=== PATIENT | male | born 1975 | race Caucasian/White ===

== ENCOUNTER → 2020-04-21 13:02 | Outpatient (BNVA) | payer MEDICARE, MEDICAID, SELFPAY | PROVIDERS: PCP Nurse Practitioner Family; Referring Provider Nurse Practitioner Family; Visit Provider Nurse Practitioner Gerontology | DX: E11.65 Type 2 diabetes mellitus with hyperglycemia (principal); I10 Essential (primary) hypertension; E78.5 Hyperlipidemia, unspecified; E55.9 Vitamin D deficiency, unspecified | CPT/HCPCS: 82947; 99212 ==

== ENCOUNTER 2020-05-14 09:04 | Outpatient (REF) | payer MEDICARE, MEDICAID, SELFPAY ==
--- NOTE | 2020-05-14 09:07 | EMG_ITS ---
HISTORY OF PRESENT ILLNESS: This is a 44-year-old man with history of diabetes for 11 years, poorly controlled, currently on Trulicity, who comes in with 1-year history of intermittent burning in both feet from the shins down, increase in the last 6 months, but not persistent. PHYSICAL EXAMINATION: On examination, he is alert and oriented with normal intellectual functions. Cranial nerves II through XII are normal. Muscle tone and strength normal in all 4 extremities. Deep tendon reflexes are absent in the lower extremities. IMPRESSION: Diabetic peripheral neuropathy. Nerve conduction EMG study: Demyelinating greater than axonal neuropathy in the lower extremities consistent with mild diabetic peripheral neuropathy. EMG of the right L4-S1 innervated muscles consistent with mild chronic distal neuropathic changes. MD BEVERLY Walker/ELENA / [id number]
== END 2020-05-14 09:05 | disposition home or self-care (01) ==
LOC: HO.NEURO 09:04
PROVIDERS: PCP Nurse Practitioner Family; Visit Provider Nurse Practitioner Family
DX: R20.0 Anesthesia of skin (principal)
CPT/HCPCS: 95860; 95886; 95913

== ENCOUNTER → 2020-07-08 09:23 | Outpatient (BNVA) | payer MEDICARE, MEDICAID, SELFPAY | PROVIDERS: Visit Provider Urology | DX: E11.69 Type 2 diabetes mellitus with other specified complication (principal); N52.1 Erectile dysfunction due to diseases classified elsewhere | CPT/HCPCS: Q3014 ==

== ENCOUNTER → 2020-07-22 09:37 | Outpatient (BNVA) | payer MEDICARE, MEDICAID, SELFPAY | PROVIDERS: PCP Nurse Practitioner Family; Visit Provider Nurse Practitioner Gerontology | DX: Z76.89 Persons encountering health services in other specified circumstances (principal) | CPT/HCPCS: Q3014 ==

== ENCOUNTER 2020-11-24 11:05 | Outpatient (REF) | payer MEDICARE, MEDICAID, SELFPAY ==
[2020-11-24 13:37] LABS: MANUAL DIFF FLAG NO
[2020-11-24 13:44] LABS: Basophils Percent Auto 0.3 % (0-2); Eosinophils Absolute Auto 0.2 X10*3/uL (0.0-0.4); Eosinophils Percent Auto 1.5 % (0-4); Hematocrit 47.4 % (42-52); Hemoglobin 15.6 g/dl (14.0-18.0); Imm Gran Abs Auto 0.06 X10*3/uL (0.00-0.03); Imm Gran Pct Auto 0.5 % (0.0-0.4); Lymphocytes Absolute Auto 2.1 X10*3/uL (1.2-4.9); Lymphocytes Percent Auto 17.7 % (20-40); Mean Corpuscular HGB Conc 32.9 g/dl (31.0-36.0); Mean Corpuscular Hemoglobin 30.5 pg (27.0-33.0); Mean Corpuscular Volume 92.8 fL (80-98); Mean Platelet Volume 10.5 fL (9.4-12.4); Monocytes Absolute Auto 1.1 X10*3/uL (0.1-1.2); Neutrophils Absolute Auto 8.3 X10*3/uL (2.0-8.3); Platelet Count 269 X10*3/uL (160-400); Red Blood Count 5.11 X10*6/uL (4.60-5.80); White Blood Count 11.7 X10*3/uL (4.8-10.8)
[2020-11-24 13:50] LABS: Estimated Average Glucose 163 mg/dL; Hemoglobin A1c % 7.3 %
[2020-11-24 14:13] LABS: Alanine Aminotransferase 22 U/L (0-40); Albumin Level 4.4 g/dL (3.5-5.0); Alkaline Phosphatase 99 U/L (39-117); Anion Gap 12 (12-20); Aspartate Amino Transferase 19 U/L (5-37); Bilirubin Total 0.5 mg/dL (0.0-1.0); Blood Urea Nitrogen 13 mg/dL (9-16); Calcium 9.8 mg/dL (8.4-10.2); Carbon Dioxide 29 mmol/L (22-29); Chloride 101 mmol/L (96-108); Estimated Glomerular Filt Rate > 60; Glucose Random 152 mg/dL (60-115); Lipase 35 U/L (8-78); Sodium 138 mmol/L (135-145); Total Protein 7.3 g/dL (6.5-8.0)
[2020-11-24 14:17] LABS: Thyroid Stimulating Hormone 2.44 uIU/mL (0.32-4.0)
== END 2020-11-24 11:06 | disposition home or self-care (01) ==
LOC: HO.LAB 11:05
PROVIDERS: PCP Nurse Practitioner Family; Referring Provider Nurse Practitioner Family; Visit Provider Physician Assistant
DX: R10.11 Right upper quadrant pain (principal); R11.2 Nausea with vomiting, unspecified; G89.29 Other chronic pain; K59.09 Other constipation; E11.65 Type 2 diabetes mellitus with hyperglycemia; R74.01 Elevation of levels of liver transaminase levels
CPT/HCPCS: 36415; 80053; 83036; 83690; 84443; 85025; 99212

== ENCOUNTER 2020-12-01 12:08 | Day surgery (SDC) | payer MEDICARE, MEDICAID, SELFPAY ==
[2020-12-01 12:02] VITALS: BMI 26.4
[2020-12-01 12:18] VITALS: BP 124/83; PULSE 80; RESP 16; TEMP 36.9; O2SAT 96
[2020-12-01 12:20] LABS: Glucose, Whole Blood 143 mg/dL (60-115)
--- NOTE | 2020-12-01 12:25 | P.CONAN_ITS ---
[facility] Active Problems Active Problems: All Active Problems (Updated 11/24/20 @ 15:34 by Re alcantar PA-C) Nausea and vomiting (Acute) Chronic right upper quadrant pain (Acute) Erectile dysfunction associated with type 2 diabetes mellitus (Acute) Numbness in both legs (Acute) Nausea and vomiting (Acute) Type 2 diabetes mellitus with hyperglycemia (Acute) Essential hypertension (Acute) Hyperlipidemia LDL goal <100 (Acute) Vitamin D deficiency (Acute) Past Medical History Medical History Chronic right upper quadrant pain Essential hypertension Hyperlipidemia LDL goal <100 Nausea and vomiting Type 2 diabetes mellitus with hyperglycemia Vitamin D deficiency Family History Family History Father Lung cancer Diabetes CVD (cardiovascular disease) Mother Diabetes Hypertension Surgical History Surgical History History of surgical removal of ganglion cyst Hx of cholecystectomy Hx of spinal fusion Social History Social History Household Members: Spouse Alcohol intake: never Patient Tobacco Use Status: Former Tobacco user Second Hand Smoke Exposure: No Use of substances other than those prescribed or required for medical reasons: Yes Are you DNR?: No Advance Directives: No Advance Directives Information Provided: Yes Advance Directives on File: No Current occupational status: unemployed Meds Allergies Allergy/AdvReac Type Severity Reaction Status Date / Time amoxicillin Allergy Unknown vomitting Verified 11/24/20 11:27 Cortisone Allergy Unknown swelling Uncoded 11/24/20 11[facility] Medications Medication Instructions Recorded Confirmed Last Taken Type ezetimibe 10 mg tablet 10 mg PO DAILY 04/21/20 07/22/20 Unknown History pantoprazole 40 mg tablet,delayed 40 mg PO DAILY 07/22/20 07/22/20 Unknown History release Exam Exam Date and Time: December 01, 2020 1225 Height,Weight and Vital Signs: Height 6 ft Weight 88.621 kg Last Vital Signs Temp 98.4 F 12/01/20 12:18 Pulse 80 12/01/20 12:18 Resp 16 12/01/20 12:18 BP 124/83 12/01/20 12:18 Pulse Ox 96 12/01/20 12:18 Pertinent Lab Results Pertinent Lab Results: Laboratory Tests 12/01/20 12:15 POC Glucose 143 H Airway Mallampati Class: II TM Dist: >3cm Neck ROM: Full
--- NOTE | 2020-12-01 12:38 | MHC.SHP ---
Pre-Procedural Eval Section B Chief Complaint: n/v Relevant Family History (Specify if Yes): No Relevant Social History: None Present Medications: see Short Stay Collaborative assessment Medical History: Significant History (Chronic right upper quadrant pain Essential hypertension Hyperlipidemia LDL goal <100 Nausea and vomiting Type 2 diabetes mellitus with hyperglycemia Vitamin D deficiency) History of Previous Operations: Relevant previous surgery/procedure and date(s) (cholecystectomy, spinal surgery) Allergies: Allergies Allergy/AdvReac Type Severity Reaction Status Date / Time amoxicillin Allergy Unknown vomitting Verified 11/24/20 11:27 Cortisone Allergy Unknown swelling Uncoded 11/24/20 11:27 of the inyection site Review of Systems Sugical H&P ROS: Negative: Constitution, Cardiovascular, Respiratory, Neurological, Psychiatric, Hem-Onc, Allergic/Immunologic, Gastrointestinal, Genitourinary, Musculoskeletal, Integumentary, Endocrine and Eyes/Ears/Nose/Throat Exam Surgical H&P Exam: Normal: HEENT, Normal: Heart, Normal: Lungs, Normal: Extremities, Normal: Abdomen, Normal: Skin and Normal: Neurological Plan Diagnosis/Plan: Unchanged I have reviewed the history and physical and performed a pertinent physical examination on my patient. No changes have occurred unless specified.
--- NOTE | 2020-12-01 12:52 | PM.OP ---
Brief Operative Note Date of Service: 12/01/20 Pre-op diagnosis: nausea, pain Post-op diagnosis: same Procedure: see op note Surgeon: Starr Nuñez MD Anesthesia: MAC Was an Environmental Auditor used for this Procedure?: No Estimated blood loss (mL): 0 Condition: stable Disposition: PACU
--- NOTE | 2020-12-01 12:52 | W.PM.OPN ---
Operative Note Operative Note Date of Service: 12/01/20 Narrative: Procedure Description: EGD FLEXIBLE TRANSORAL UPPER GASTROINTESTINAL ENDOSCOPY UPPER ENDOSCOPY Consent: Indications for the procedure and potential complications of bleeding, perforation, reaction to medications and missed diagnosis were discussed with the patient and informed consent was obtained. Instrument: Olympus GIF H 190 J mid size upper endoscope Monitoring: Vital signs and clinical assessment, continuous EKG monitoring, Pulse oximetry, Carbon Dioxide monitoring and blood pressure monitoring were done throughout the procedure. Procedure: The patient was placed in the left lateral decubitis position and pre-procedure medications were administered and a bite block was placed. The endoscope was inserted into the mouth and advanced under direct vision to the third part of duodenum. A careful inspection was made as the upper endoscope was withdrawn including a retroflexed examination of the proximal stomach; Findings and interventions are described below. Findings: Larynx:normal Esophagus: GE junction at 42 cm, diaphragm hiatus at 42 cm, no varices or esophagitis. Stomach: Retained food in upper stomach. Patchy gastric erythema. Biopsies were obtained. Grade 2 flap valve on retroflexed examination of the cardia. Fundus obscured by retained food. Duodenum: Normal bulb and descending duodenum, bx taken Intervention: Biopsies as noted above Impression/Findings: possible gastroparesis maybe from DM or medication related gastritis PLAN: small volume low fat, low fiber meals await GES as ordered by Saad Calvillo and GENEVIEVE ZUÑIGA cont with PPI
[2020-12-01 13:03] VITALS: BP 120/76; PULSE 80; RESP 16; TEMP 36.1; O2SAT 98
[2020-12-01 13:18] VITALS: BP 120/84; PULSE 77; RESP 18; TEMP 36.4; O2SAT 98
== END 2020-12-01 13:35 | disposition home or self-care (01) ==
PROVIDERS: PCP Nurse Practitioner Family; Visit Provider Internal Medicine Gastroenterology
PROC: 0DJ08ZZ Inspection of Upper Intestinal Tract, Via Natural or Artificial Opening Endoscopic (ICD-10-PCS; CPT 43235; principal; 2020-12-01 12:50)
DX: R11.2 Nausea with vomiting, unspecified (principal); K29.70 Gastritis, unspecified, without bleeding; I10 Essential (primary) hypertension; E11.9 Type 2 diabetes mellitus without complications
CPT/HCPCS: 43239; 82947; 88305; 88341; 88342

== ENCOUNTER → 2020-12-08 12:33 | Outpatient (BNVA) | payer MEDICARE, MEDICAID, SELFPAY | PROVIDERS: PCP Nurse Practitioner Family; Visit Provider Nurse Practitioner Gerontology | DX: Z13.89 Encounter for screening for other disorder (principal) | CPT/HCPCS: 99212 ==

== ENCOUNTER 2020-12-25 07:50 | Outpatient (REF) | payer MEDICARE, MEDICAID, SELFPAY ==
--- NOTE | ~2020-12-25 | US_ITS ---
EXAMINATION: US ABDOMEN COMPLETE CLINICAL INFORMATION: Right upper quadrant pain. COMPARISON: Abdominal CT of March 24, 2018 TECHNIQUE: Real-time imaging of the abdominal viscera. FINDINGS: PANCREAS: Unremarkable. No abnormal mass or peripancreatic inflammatory change. ABDOMINAL AORTA: The proximal, mid, and distal segments are normal in caliber. There is some calcified plaque present without significant stenosis appreciated. INFERIOR VENA CAVA: Visualized portions are normal. LIVER: The liver is normal in size. The liver contour is normal. There is mildly increased echogenicity compared to renal parenchyma. This is consistent with fatty infiltration. No focal hepatic lesion. There is no intrahepatic biliary duct dilatation seen. GALLBLADDER: status post cholecystectomy. COMMON BILE DUCT: Normal in caliber measuring 0.3 cm in diameter. RIGHT KIDNEY: Normal. No hydronephrosis. No renal calculi or focal parenchymal lesions. The kidney measures 11.8 cm in maximum dimension. LEFT KIDNEY: Normal. No hydronephrosis. No renal calculi or focal parenchymal lesions. The kidney measures 10.5 cm in maximum dimension. SPLEEN: Mild splenomegaly present. The spleen measures 13.2 cm in maximum dimension. FREE FLUID: None. US/US abdomen complete IMPRESSION: Findings consistent with fatty infiltration of the liver. Prominence of the spleen measuring 13.2 cm in vertical span. Status post cholecystectomy.
== END 2020-12-25 07:51 | disposition home or self-care (01) ==
LOC: HO.US 07:50
PROVIDERS: Visit Provider Physician Assistant
DX: R10.11 Right upper quadrant pain (principal); G89.29 Other chronic pain
CPT/HCPCS: 76700

== ENCOUNTER → 2020-12-31 08:11 | Outpatient (REF) | payer MEDICARE, MEDICAID, SELFPAY ==
--- NOTE | ~2020-12-31 | NM_ITS ---
EXAMINATION: MT RADIONUCLIDE SOLID FOOD GASTRIC EMPTYING 4-HOUR STUDY CLINICAL INFORMATION: Diabetes mellitus with hyperglycemia. Nausea and vomiting. COMPARISON: None TECHNIQUE: A standard meal consisting of 4 oz of Egg Beaters brand tagged with 1.0 microcuries Tc-99m Sulfur Colloid, 8 oz water and half slice of toast with jelly was administered orally to the patient. Images were obtained using a dual head gamma camera in the anterior and posterior projections over of the stomach immediately post ingestion and at hourly intervals up to 4 hours post ingestion. The anterior and posterior counts at each time interval were averaged using the geometric mean and expressed as percentage of the immediate post ingestion counts. FINDINGS: There is good visualization of activity in the stomach immediately post ingestion. As the study progresses, there is good clearance of activity from the stomach and visualization of progressively increasing small bowel activity. By the end of the study, there is almost no retention noted in the stomach. Retention in the stomach at each time interval was: 1 hour 25% (normal 37%-90%) 2 hours 20% (normal 30%-60%) 3 hours 1% 4 hours 0% (normal 0%-10%) MT/MT gastric emptying study IMPRESSION: Normal 4-hour solid food gastric emptying study.
== END ==
LOC: HO.NUCMED 08:11
PROVIDERS: Visit Provider Physician Assistant
DX: R11.2 Nausea with vomiting, unspecified (principal); E11.65 Type 2 diabetes mellitus with hyperglycemia
CPT/HCPCS: 78264; A9541

== ENCOUNTER 2021-01-02 09:52 | Outpatient (REF) | payer MEDICARE, MEDICAID, SELFPAY ==
[2021-01-02 10:25] LABS: MANUAL DIFF FLAG NO
[2021-01-02 10:45] LABS: Basophils Absolute Auto 0.1 X10*3/uL (0.0-0.2); Basophils Percent Auto 0.7 % (0-2); Eosinophils Absolute Auto 0.2 X10*3/uL (0.0-0.4); Eosinophils Percent Auto 2.6 % (0-4); Hematocrit 50.4 % (42-52); Hemoglobin 16.9 g/dl (14.0-18.0); Imm Gran Abs Auto 0.03 X10*3/uL (0.00-0.03); Imm Gran Pct Auto 0.3 % (0.0-0.4); Lymphocytes Absolute Auto 2.4 X10*3/uL (1.2-4.9); Lymphocytes Percent Auto 26.7 % (20-40); Mean Corpuscular HGB Conc 33.5 g/dl (31.0-36.0); Mean Corpuscular Hemoglobin 30.9 pg (27.0-33.0); Mean Corpuscular Volume 92.1 fL (80-98); Mean Platelet Volume 10.2 fL (9.4-12.4); Monocytes Absolute Auto 0.7 X10*3/uL (0.1-1.2); Monocytes Percent Auto 7.9 % (2-11); Neutrophils Absolute Auto 5.5 X10*3/uL (2.0-8.3); Neutrophils Percent Auto 61.8 % (45-73); Platelet Count 266 X10*3/uL (160-400); Red Blood Count 5.47 X10*6/uL (4.60-5.80); Red Cell Distribution Width 13.3 % (11.0-16.0)
[2021-01-02 11:10] LABS: Glucose Urine UA NEG (NEG); Leukocyte Esterase Urine NEG (NEG); Nitrite Urine NEG (NEG); Specific Gravity - Urine >= 1.030 (1.005-1.025); Urine Blood NEG (NEG); Urine Ketones NEG (NEG); Urine Protein 1+ MG/DL (NEG-TRACE)
[2021-01-02 11:12] LABS: Appearance Urine HAZY; Color Urine YELLOW
[2021-01-02 11:23] LABS: Alanine Aminotransferase 33 U/L (0-40); Albumin Level 4.6 g/dL (3.5-5.0); Alkaline Phosphatase 89 U/L (39-117); Anion Gap 16 (12-20); Aspartate Amino Transferase 21 U/L (5-37); Bilirubin Total 0.6 mg/dL (0.0-1.0); Blood Urea Nitrogen 10 mg/dL (9-16); Calcium 10.2 mg/dL (8.4-10.2); Carbon Dioxide 26 mmol/L (22-29); Chloride 101 mmol/L (96-108); Estimated Glomerular Filt Rate > 60; Glucose Random 174 mg/dL (60-115); Potassium 4.5 mmol/L (3.3-5.1); Sodium 138 mmol/L (135-145); Total Protein 7.8 g/dL (6.5-8.0)
[2021-01-02 11:24] LABS: Mucus Urine 1+ /LPF; RBC Urine 0 /HPF (0); Squamous Epithelial Cell Urine 1+ /LPF; WBC Urine 0 /HPF (0-4)
[2021-01-02 11:26] LABS: Erythrocyte Sedimentation Rate 5 MM/HR (0-15)
[2021-01-02 11:44] LABS: Vitamin D 25-OH Total 24.8 ng/mL (>30)
[2021-01-02 11:51] LABS: Folate 8.7 ng/mL (> or = 4.0); Vitamin B12 379 pg/mL (200-900)
[2021-01-05 20:16] LABS: Zinc 75 mcg/dL (60-130)
[2021-01-06 15:16] LABS: Vitamin B6 7.5 ng/mL (2.1-21.7)
[2021-01-06 22:27] LABS: Histamine Plasma <1.5 ng/mL (< OR = 1.8)
[2021-01-07 11:27] LABS: Nicotinamide <20 ng/mL; Vit B3 - Nicotinic Acid <20 ng/mL
[2021-01-07 18:12] LABS: Vitamin C 0.1 mg/dL (0.2-2.1)
[2021-01-07 19:16] LABS: Alpha-Tocopherol 13.8 mg/L (5.7-19.9); Vitamin A 59 mcg/dL (38-98)
[2021-01-07 21:21] LABS: Vitamin K1 134 pg/mL (130-1500)
[2021-01-09 18:56] LABS: Vitamin B5 (Pantothenic Acid) 47 ng/mL (<275)
== END 2021-01-02 09:53 | disposition home or self-care (01) ==
LOC: HO.LAB 09:52
PROVIDERS: PCP Nurse Practitioner Family; Visit Provider Internal Medicine Gastroenterology
DX: R11.2 Nausea with vomiting, unspecified (principal); R20.0 Anesthesia of skin; K75.81 Nonalcoholic steatohepatitis (NASH)
CPT/HCPCS: 36415; 80053; 81001; 81003; 82180; 82306; 82607; 82746; 83088; 83520; 84207; 84446; 84590; 84591; 84597; 84630; 85025; 85652; 86003

== ENCOUNTER → 2021-01-21 12:02 | Outpatient (BNVA) | payer MEDICARE, MEDICAID, SELFPAY | PROVIDERS: PCP Nurse Practitioner Family; Visit Provider Physician Assistant | DX: E54 Ascorbic acid deficiency (principal); A04.8 Other specified bacterial intestinal infections | CPT/HCPCS: 99212 ==

== ENCOUNTER → 2021-03-03 09:37 | Outpatient (BNVA) | payer MEDICARE, MEDICAID, SELFPAY | PROVIDERS: PCP Nurse Practitioner Family; Referring Provider Nurse Practitioner Family; Visit Provider Psychiatry & Neurology Neurology | DX: G47.10 Hypersomnia, unspecified (principal); G47.00 Insomnia, unspecified; R06.83 Snoring; R51.9 Headache, unspecified | CPT/HCPCS: 99202 ==

== ENCOUNTER 2021-03-04 13:08 | Outpatient (REF) | payer MEDICARE, MEDICAID, SELFPAY ==
[2021-03-05 14:00] LABS: H Pylori Breath Test Negative (Negative)
== END 2021-03-04 13:09 | disposition home or self-care (01) ==
LOC: HO.LNP 13:08
PROVIDERS: PCP Nurse Practitioner Family; Referring Provider Nurse Practitioner Family; Visit Provider Physician Assistant
DX: A04.8 Other specified bacterial intestinal infections (principal)
CPT/HCPCS: 83013

== ENCOUNTER 2021-03-23 11:54 | Outpatient (REF) | payer MEDICARE, MEDICAID, SELFPAY | END 2021-03-23 11:55 | disposition home or self-care (01) | LOC: HO.LNP 11:54 | PROVIDERS: Visit Provider Physician Assistant | DX: A04.8 Other specified bacterial intestinal infections (principal) | CPT/HCPCS: 87338 ==

== ENCOUNTER → 2021-03-26 12:38 | Outpatient (BNVA) | payer MEDICARE, MEDICAID, SELFPAY | PROVIDERS: PCP Nurse Practitioner Family; Visit Provider Nurse Practitioner Gerontology | DX: Z13.89 Encounter for screening for other disorder (principal) | CPT/HCPCS: Q3014 ==

== ENCOUNTER → 2021-04-21 13:41 | Outpatient (BNVA) | payer MEDICARE, MEDICAID, SELFPAY | PROVIDERS: PCP Nurse Practitioner Family; Referring Provider Nurse Practitioner Family; Visit Provider Internal Medicine Gastroenterology | DX: A04.8 Other specified bacterial intestinal infections (principal) | CPT/HCPCS: 99212 ==

== ENCOUNTER 2021-05-01 13:31 | Outpatient (REF) | payer MEDICARE, MEDICAID, SELFPAY ==
[2021-05-02 12:04] LABS: H Pylori Breath Test Negative (Negative)
== END 2021-05-01 13:32 | disposition home or self-care (01) ==
LOC: HO.LNP 13:31
PROVIDERS: PCP Nurse Practitioner Family; Referring Provider Nurse Practitioner Family; Visit Provider Internal Medicine Gastroenterology
DX: A04.8 Other specified bacterial intestinal infections (principal)
CPT/HCPCS: 83013; 99211

== ENCOUNTER 2021-08-12 11:52 | Outpatient (REF) | payer MEDICARE, MEDICAID, SELFPAY ==
[2021-08-13 14:47] LABS: H Pylori Breath Test Negative (Negative)
== END 2021-08-12 11:53 ==
LOC: HO.LNP 11:52
PROVIDERS: PCP Nurse Practitioner Family; Referring Provider Nurse Practitioner Family; Visit Provider Internal Medicine Gastroenterology
DX: Z11.0 Encounter for screening for intestinal infectious diseases (principal)
CPT/HCPCS: 83013; 99211

== ENCOUNTER 2021-09-08 09:21 | Emergency (ER) | payer MEDICARE, MEDICAID, SELFPAY ==
--- NOTE | 2021-09-08 | ECG_ITS ---
Test Reason : chest pain Blood Pressure : / mmHG Vent. Rate : 063 BPM Atrial Rate : 063 BPM P-R Int : 134 ms QRS Dur : 080 ms QT Int : 350 ms P-R-T Axes : 054 054 029 degrees QTc Int : 358 ms Normal sinus rhythm Normal ECG No previous ECGs available Referred By: Generic ED Physician Electronically Signed By:Laz Whitman
--- NOTE | ~2021-09-08 | XR_ITS ---
EXAMINATION: XR CHEST CLINICAL INFORMATION: Chest pain COMPARISON: None TECHNIQUE: 2 views of the chest were obtained. FINDINGS: No significant abnormality is noted involving the heart, lungs, mediastinum, bony thorax or soft tissues. XR/XR chest 2V IMPRESSION: Unremarkable examination.
[2021-09-08 09:55] LABS: MANUAL DIFF FLAG NO
[2021-09-08 09:59] LABS: Basophils Absolute Auto 0.1 X10*3/uL (0.0-0.2); Basophils Percent Auto 0.9 % (0-2); Eosinophils Absolute Auto 0.2 X10*3/uL (0.0-0.4); Eosinophils Percent Auto 2.7 % (0-4); Hematocrit 46.9 % (42.0-52.0); Hemoglobin 15.9 g/dl (14.0-18.0); Imm Gran Abs Auto 0.06 X10*3/uL (0.00-0.03); Imm Gran Pct Auto 0.9 % (0.0-0.4); Lymphocytes Percent Auto 29.9 % (20-40); Mean Corpuscular HGB Conc 33.9 g/dl (31.0-36.0); Mean Corpuscular Hemoglobin 32.1 pg (27.0-33.0); Mean Corpuscular Volume 94.7 fL (80.0-98.0); Mean Platelet Volume 9.9 fL (9.4-12.4); Monocytes Absolute Auto 0.7 X10*3/uL (0.1-1.2); Monocytes Percent Auto 10.9 % (2-11); Neutrophils Absolute Auto 3.7 x10*3/uL (2.0-8.3); Neutrophils Percent Auto 54.7 % (45-73); Platelet Count 241 X10*3/uL (160-400); Red Blood Count 4.95 X10*6/uL (4.60-5.80); Red Cell Distribution Width 13.1 % (11.0-16.0); White Blood Count 6.8 X10*3/uL (4.8-10.8)
[2021-09-08 10:16] LABS: Troponin-I High Sensitivity < 3.5 ng/L (<3.5-35.0)
[2021-09-08 10:19] VITALS: BP 149/88; PULSE 84; RESP 14; TEMP 37; O2SAT 96; BMI 27.1
[2021-09-08 10:37] LABS: Anion Gap 19 (12-20); Blood Urea Nitrogen 10 mg/dL (9-16); Calcium 10.3 mg/dL (8.4-10.2); Carbon Dioxide 24 mmol/L (22-29); Chloride 100 mmol/L (96-108); Creatinine Clr Calc Pharmacy 96.4; Estimated Glomerular Filt Rate > 60; Glucose Random 256 mg/dL (60-115); Potassium 4.7 mmol/L (3.3-5.1); Sodium 138 mmol/L (135-145)
== END 2021-09-08 15:08 | disposition left against medical advice (07) ==
PROVIDERS: Emergency Provider Emergency Medicine; PCP Nurse Practitioner Family
DX: R07.9 Chest pain, unspecified (principal); R20.2 Paresthesia of skin
CPT/HCPCS: 36415; 71046; 80048; 84484; 85025; 93005; 99283

== ENCOUNTER 2021-09-21 14:31 | Outpatient (REF) | payer MEDICARE, MEDICAID, SELFPAY ==
[2021-09-21 14:37] VITALS: TEMP 36.1
[2021-09-21 14:38] VITALS: BP 122/76; PULSE 85; RESP 16; O2SAT 96; BMI 27.1
[2021-09-21 15:14] VITALS: BP 143/85; PULSE 81; RESP 16; O2SAT 95
== END 2021-09-21 14:32 | disposition home or self-care (01) ==
LOC: HO.MS 14:31
PROVIDERS: PCP Nurse Practitioner Family; Visit Provider Ophthalmology
PROC: (CPT 67840; principal; 2021-09-21 16:20)
DX: D23.121 Other benign neoplasm of skin of left upper eyelid, including canthus (principal); D23.122 Other benign neoplasm of skin of left lower eyelid, including canthus
CPT/HCPCS: 67840 ×3; 88304

== ENCOUNTER 2021-10-29 13:47 | Outpatient (REF) | payer MEDICARE, MEDICAID, SELFPAY ==
--- NOTE | ~2021-10-29 | XR_ITS ---
EXAMINATION: XR KNEE-LEFT XR SHOULDER-LEFT CLINICAL INFORMATION: Left knee pain. Left shoulder pain. COMPARISON: None TECHNIQUE: 2 views of the left knee and 4 views of the left shoulder. FINDINGS: Left knee: The bony alignments are intact. The cortices are intact. Articular margins, joint space appear unremarkable. The soft tissues are unremarkable. Left shoulder: The bony alignments are intact. The cortices are intact. Mild osteoarthrosis is noted at the left acromioclavicular joint. The glenohumeral joint is unremarkable. The soft tissues are unremarkable. XR/XR knee LT 2V IMPRESSION: 1. Radiographically unremarkable left knee. 2. Mild osteoarthrosis of the left acromioclavicular joint.
--- NOTE | ~2021-10-29 | XR_ITS ---
EXAMINATION: XR KNEE-LEFT XR SHOULDER-LEFT CLINICAL INFORMATION: Left knee pain. Left shoulder pain. COMPARISON: None TECHNIQUE: 2 views of the left knee and 4 views of the left shoulder. FINDINGS: Left knee: The bony alignments are intact. The cortices are intact. Articular margins, joint space appear unremarkable. The soft tissues are unremarkable. Left shoulder: The bony alignments are intact. The cortices are intact. Mild osteoarthrosis is noted at the left acromioclavicular joint. The glenohumeral joint is unremarkable. The soft tissues are unremarkable. XR/XR shoulder LT min 2V IMPRESSION: 1. Radiographically unremarkable left knee. 2. Mild osteoarthrosis of the left acromioclavicular joint.
== END 2021-10-29 13:48 | disposition home or self-care (01) ==
LOC: HO.HMGCX 13:47
PROVIDERS: PCP Nurse Practitioner Family; Visit Provider Nurse Practitioner Family
DX: M25.562 Pain in left knee (principal); M25.512 Pain in left shoulder
CPT/HCPCS: 73030; 73560

== ENCOUNTER → 2021-11-06 09:45 | Outpatient (BNVA) | payer MEDICARE, MEDICAID, SELFPAY | PROVIDERS: PCP Nurse Practitioner Family; Visit Provider Physician Assistant | DX: M54.2 Cervicalgia (principal); M75.102 Unspecified rotator cuff tear or rupture of left shoulder, not specified as traumatic | CPT/HCPCS: 99202 ==

== ENCOUNTER 2021-11-18 10:23 | Outpatient (REF) | payer MEDICARE, MEDICAID, SELFPAY ==
--- NOTE | 2021-11-18 10:29 | EMG_ITS ---
HISTORY OF PRESENT ILLNESS: This is a 46-year-old man who fell off an 8 foot [place] in May and subluxated his left shoulder and has had increasing pain and now numbness that goes into the first 3 fingers of the left hand. PHYSICAL EXAMINATION: On examination, he is alert, oriented with normal intellectual functions. Cranial nerves II through XII are normal. No Tinel or Phalen sign. No muscle atrophy. IMPRESSION: Rule out C6-7 radiculopathy, rule out carpal tunnel syndrome. Nerve conduction EMG study: Mild carpal tunnel syndrome on the left. Normal EMG of the left C5-T1 innervated muscles with no definite evidence of cervical radiculopathy. MD BEVERLY Walker/ELENA / [id number]
== END 2021-11-18 10:24 | disposition home or self-care (01) ==
LOC: HO.NEURO 10:23
PROVIDERS: Visit Provider Physician Assistant
DX: R20.0 Anesthesia of skin (principal); R20.2 Paresthesia of skin
CPT/HCPCS: 95886; 95910

== ENCOUNTER 2021-11-23 13:00 | Outpatient (RCR) | payer MEDICARE, MEDICAID, SELFPAY ==
--- NOTE | 2021-11-24 10:37 | MHC.PT.EP ---
[facility] [place] Office [place] Office [place] Office [address] Manri[address] [phone] F: [phone] F: [phone] F: [phone] F: [phone] Physical Therapy Plan of Care Date of Evaluation: Date of Surgery: Diagnosis: L shoulder unspecified tear/painful arc, cervicalgia, numbness of L arm Assessment: Pt is a 46 y/o RHD male referred to PT for eval and treat of L shoulder unspecified tear cervicalgia and numbness of arm following traumatic fall on L side while hiking presents with signs and Sx consistent with L shoulder and cervical dysfunction resulting in decreased ability and tolerance for reaching, pushing, pulling and carrying objects of weight, reaching his neck and back for hygiene and dressing, dressing pullovers, significantly disturbed sleep, performing recreational activities as well as driving secondary to decreased L shoulder and cervical ROM and strength, TTP of L side cervical and superior shoulder, + L upper limb neural tension, L UE radiculopathy, decreased posture, and pain. Pt is deemed an appropriate candidate to receive skilled PT in order to address his physical limitations to improve his functional ability. Frequency and Duration: The patient will be seen Short Term Goals: Initiate HEP. Pt will improve L UE radicular symptoms by at least 50%. L shoulder AROM flexion to > 149 degrees; initial 65 degrees AROM 90 degrees PROM. Halfway Goals: I with HEP. Pt will report at most 1/4 disturbed night's sleep; initial: completely disturbed. Pt will be able to wash and dress his back with at most 2/10 difficulty; initial 9/10. Pt will be able to place objects on high shelf with managed Sx; initial: unable to perform. Symmetrical cervical rotation AROM achieved. L UE radicular symptoms abolished. Treatment Plan: Modalities to reduce pain, spasms and effusion. Manual therapy to restore motion and function. Therapeutic exercise to improve strength and flexibility. Neuromuscular re-education for posture and balance. Therapeutic activities to return to functional activities of daily living. Electronically signed by: Rashard Weber PT. Please sign and return to therapist. Thank you for your referral.
--- NOTE | 2021-12-08 17:59 | MHC.PT.DC ---
[facility] [place] Office [place] Office [place] Office [address] Katherine Manriquez 140 [facility] [phone] F: [phone] F: [phone] F: [phone] F: [phone] Physical Therapy Discharge Report Diagnosis: L shoulder unspecified tear/painful arc, cervicalgia, numbness of L arm Date of Surgery: Date of Evaluation: 11/18/21 Date of Discharge: 12/08/21 Treatments to Date: 2 Cancellations to Date: 5 No Shows to Date: Discharge Status: Patient Elected to Stop Discharge Summary: Pt elected to terminate therapy as he is considering surgical management. Electronically signed by: Rashard Weber PT. Please sign and return to therapist. Thank you for your referral.
== END 2021-12-08 18:00 | disposition home or self-care (01) ==
LOC: HO.PTCHIC 13:00
PROVIDERS: PCP Nurse Practitioner Family; Visit Provider Physician Assistant
DX: R20.0 Anesthesia of skin (principal); R20.2 Paresthesia of skin; M75.102 Unspecified rotator cuff tear or rupture of left shoulder, not specified as traumatic; M54.2 Cervicalgia
CPT/HCPCS: 97014; 97110; 97112; 97161

== ENCOUNTER 2021-12-07 14:00 | Outpatient (REF) | payer MEDICARE, MEDICAID, SELFPAY ==
[2021-12-07 14:08] VITALS: BP 114/78; PULSE 95; RESP 16; TEMP 36.9; O2SAT 98
[2021-12-07 14:09] VITALS: BMI 24.7
== END 2021-12-07 14:01 | disposition home or self-care (01) ==
LOC: HO.MS 14:00
PROVIDERS: PCP Nurse Practitioner Family; Visit Provider Ophthalmology
PROC: (CPT 67840; principal; 2021-12-07 16:10)
DX: D23.111 Other benign neoplasm of skin of right upper eyelid, including canthus (principal); D23.122 Other benign neoplasm of skin of left lower eyelid, including canthus; E11.9 Type 2 diabetes mellitus without complications; I10 Essential (primary) hypertension; E78.00 Pure hypercholesterolemia, unspecified; Z79.899 Other long term (current) drug therapy; Z87.891 Personal history of nicotine dependence
CPT/HCPCS: 67840 ×2; 88305

== ENCOUNTER → 2021-12-08 13:35 | Outpatient (BNVA) | payer MEDICARE, MEDICAID, SELFPAY | PROVIDERS: PCP Nurse Practitioner Family; Visit Provider Physician Assistant | DX: M75.102 Unspecified rotator cuff tear or rupture of left shoulder, not specified as traumatic (principal); M25.512 Pain in left shoulder; M54.2 Cervicalgia; R20.0 Anesthesia of skin; R20.2 Paresthesia of skin | CPT/HCPCS: 99212 ==

== ENCOUNTER 2021-12-16 13:10 | Outpatient (REF) | payer MEDICARE, MEDICAID, SELFPAY ==
[2021-12-16 14:01] LABS: MANUAL DIFF FLAG NO
[2021-12-16 14:06] LABS: Basophils Percent Auto 0.5 % (0-2); Eosinophils Absolute Auto 0.3 X10*3/uL (0.0-0.4); Hemoglobin 15.9 g/dl (14.0-18.0); Imm Gran Abs Auto 0.02 X10*3/uL (0.00-0.03); Imm Gran Pct Auto 0.3 % (0.0-0.4); Lymphocytes Absolute Auto 2.1 X10*3/uL (1.2-4.9); Lymphocytes Percent Auto 28.7 % (20-40); Mean Corpuscular HGB Conc 34.6 g/dl (31.0-36.0); Mean Corpuscular Hemoglobin 31.3 pg (27.0-33.0); Mean Corpuscular Volume 90.6 fL (80.0-98.0); Mean Platelet Volume 10.5 fL (9.4-12.4); Monocytes Absolute Auto 0.8 X10*3/uL (0.1-1.2); Neutrophils Absolute Auto 4.1 x10*3/uL (2.0-8.3); Neutrophils Percent Auto 55.5 % (45-73); Platelet Count 306 X10*3/uL (160-400); Red Blood Count 5.08 X10*6/uL (4.60-5.80); Red Cell Distribution Width 12.4 % (11.0-16.0); White Blood Count 7.5 X10*3/uL (4.8-10.8)
[2021-12-16 14:46] LABS: TSH reflex Free T4 2.35 uIU/mL (0.32-4.0)
[2021-12-16 15:02] LABS: Alanine Aminotransferase 17 U/L (0-40); Albumin Level 4.5 g/dL (3.5-5.0); Alkaline Phosphatase 98 U/L (39-117); Anion Gap 14 (12-20); Aspartate Amino Transferase 12 U/L (5-37); Bilirubin Total 0.4 mg/dL (0.0-1.0); Blood Urea Nitrogen 12 mg/dL (9-16); Calcium 9.6 mg/dL (8.4-10.2); Carbon Dioxide 25 mmol/L (22-29); Chloride 100 mmol/L (96-108); Cholesterol 221 mg/dL; Estimated Glomerular Filt Rate > 60; HDL Cholesterol 41 mg/dL; LDL Cholesterol Calculated 119 mg/dl; Potassium 4.4 mmol/L (3.3-5.1); Sodium 135 mmol/L (135-145); Total Protein 7.6 g/dL (6.5-8.0); Triglycerides 307 mg/dL
[2021-12-16 15:25] LABS: Glucose Fasting 354 mg/dL (60-99)
[2021-12-16 16:37] LABS: Appearance Urine CLEAR; Color Urine YELLOW; Glucose Urine UA >=1000 MG/DL (NEG); Leukocyte Esterase Urine NEG (NEG); Nitrite Urine NEG (NEG); PH 5.5 (5.0-8.0); Urine Blood NEG (NEG); Urine Ketones NEG (NEG); Urine Protein NEG (NEG-TRACE)
[2021-12-16 16:49] LABS: RBC Urine 0 /HPF (0); WBC Urine 0 /HPF (0-4)
== END 2021-12-16 13:11 | disposition home or self-care (01) ==
LOC: HO.HMGCLDS 13:10
PROVIDERS: PCP Nurse Practitioner Family; Visit Provider Nurse Practitioner Family
DX: I10 Essential (primary) hypertension (principal)
CPT/HCPCS: 36415; 80053; 80061; 81001; 84443; 85025

== ENCOUNTER 2022-06-03 08:50 | Outpatient (REF) | payer MEDICARE, MEDICAID, SELFPAY ==
[2022-06-03 11:31] LABS: Appearance Urine Clear; Color Urine Yellow; Glucose Urine UA 500 mg/dL (Negative); Leukocyte Esterase Urine Negative (Negative); Nitrite Urine Negative (Negative); Urine Blood Negative (Negative); Urine Ketones Negative (Negative); Urine Protein Negative (Neg-Trace)
[2022-06-03 11:53] LABS: Estimated Average Glucose 169 mg/dL; Hemoglobin A1c % 7.5 %
[2022-06-03 12:09] LABS: Microalbum/Creatinine Ratio Ur 7.1 ug/mg cr
[2022-06-03 13:14] LABS: Alanine Aminotransferase 23 U/L (0-40); Albumin Level 4.4 g/dL (3.5-5.0); Alkaline Phosphatase 69 U/L (39-117); Anion Gap 13 (12-20); Aspartate Amino Transferase 14 U/L (5-37); Bilirubin Total 0.4 mg/dL (0.0-1.0); Blood Urea Nitrogen 9 mg/dL (9-16); Calcium 9.5 mg/dL (8.4-10.2); Carbon Dioxide 28 mmol/L (22-29); Chloride 103 mmol/L (96-108); Cholesterol 189 mg/dL; Estimated Glomerular Filt Rate > 60; Glucose Fasting 198 mg/dL (60-99); HDL Cholesterol 37 mg/dL; LDL Cholesterol Calculated 123 mg/dl; Sodium 140 mmol/L (135-145); Total Protein 7.3 g/dL (6.5-8.0); Triglycerides 145 mg/dL
== END 2022-06-03 08:51 | disposition home or self-care (01) ==
LOC: HO.HMGCLDS 08:50
PROVIDERS: PCP Nurse Practitioner Family; Visit Provider Nurse Practitioner Family
DX: I10 Essential (primary) hypertension (principal); E11.9 Type 2 diabetes mellitus without complications
CPT/HCPCS: 36415; 80053; 80061; 81003; 82043; 83036

== ENCOUNTER 2022-08-16 21:58 | Emergency (ER) | payer MEDICARE, MEDICAID, SELFPAY ==
[2022-08-16 22:04] VITALS: BP 153/112; PULSE 125; RESP 18; TEMP 36.9; O2SAT 97; BMI 26.8
[2022-08-16 22:27] LABS: MANUAL DIFF FLAG NO
[2022-08-16 22:28] LABS: Basophils Absolute Auto 0.1 X10*3/uL (0.0-0.2); Basophils Percent Auto 0.5 % (0-2); Eosinophils Absolute Auto 0.2 X10*3/uL (0.0-0.4); Eosinophils Percent Auto 1.6 % (0-4); Hematocrit 47.8 % (42.0-52.0); Hemoglobin 17.1 g/dl (14.0-18.0); Imm Gran Abs Auto 0.06 X10*3/uL (0.00-0.03); Imm Gran Pct Auto 0.6 % (0.0-0.4); Lymphocytes Absolute Auto 2.2 X10*3/uL (1.2-4.9); Lymphocytes Percent Auto 20.6 % (20-40); Mean Corpuscular HGB Conc 35.8 g/dl (31.0-36.0); Mean Corpuscular Hemoglobin 31.1 pg (27.0-33.0); Mean Corpuscular Volume 86.9 fL (80.0-98.0); Mean Platelet Volume 9.8 fL (9.4-12.4); Monocytes Percent Auto 9.3 % (2-11); Neutrophils Absolute Auto 7.3 x10*3/uL (2.0-8.3); Neutrophils Percent Auto 67.4 % (45-73); Platelet Count 297 X10*3/uL (160-400); Red Cell Distribution Width 12.4 % (11.0-16.0); White Blood Count 10.8 X10*3/uL (4.8-10.8)
[2022-08-16 22:41] LABS: COVID-19 Test Negative (Negative); IDNOW Serial# 6674DD1D
[2022-08-16 22:45] LABS: Acetaminophen LAB < 17 mcg/mL (<30); Ethanol < 10 mg/dL; Salicylate < 5.0 mg/dL (15-30)
[2022-08-16 22:49] LABS: Alanine Aminotransferase 28 U/L (0-40); Albumin Level 4.7 g/dL (3.5-5.0); Alkaline Phosphatase 115 U/L (39-117); Anion Gap 20 (12-20); Aspartate Amino Transferase 16 U/L (5-37); Bilirubin Total 0.5 mg/dL (0.0-1.0); Blood Urea Nitrogen 9 mg/dL (9-16); Carbon Dioxide 22 mmol/L (22-29); Chloride 94 mmol/L (96-108); Creatinine Clr Calc Pharmacy 71.5; Estimated Glomerular Filt Rate 54; Glucose Random 551 mg/dL (60-115); Potassium 4.4 mmol/L (3.3-5.1); Sodium 132 mmol/L (135-145)
--- NOTE | 2022-08-16 22:54 | ED_ITS ---
HPI - Psych General Chief Complaint: Psychiatric Symptoms <Fili Jones MD - Last Filed: 08/17/22 06:57> Stated Complaint: Crisis <Fili Jones MD - Last Filed: 08/17/22 06:57> Time Seen by Provider: 08/16/22 22:27 <Fili Jones MD - Last Filed: 08/17/22 06:57> Source: patient <Fili Jones MD - Last Filed: 08/17/22 06:57> Mode of arrival: EMS <Fili Jones MD - Last Filed: 08/17/22 06:57> Limitations: no limitations <Fili Jones MD - Last Filed: 08/17/22 06:57> History of Present Illness HPI Narrative: Patient with history of personality disorder, anxiety, depression not on anti depressants brought by EMS section 12 as patient under increased stress from home situation trying to commit suicide by holding the knife and gasture. On arrival patient is coherent calm and quiet denies any suicidal ideation at this time patient also missed his Trulicity this week used on arrival was 551 <Fili Jones MD - Last Filed: 08/17/22 06:57> Related Data Home Medications: Home Medications Medication Instructions Recorded Confirmed cyclobenzaprine 5 mg tablet 1 tab PO TID PRN muscle spasm 08/16/22 08/16/22 dulaglutide 3 mg/0.5 mL 0.5 ml subcut QWEEK 08/16/22 08/16/22 subcutaneous pen injector (Trulicity) Previous Rx's Medication Instructions Recorded atorvastatin 20 mg tablet 20 mg PO BEDTIME 90 days #90 tabs 03/02/22 <Fili Jones MD - Last Filed: 08/17/22 06:57> Allergies/Adverse Reactions: Allergies Allergy/AdvReac Type Severity Reaction Status Date / Time amoxicillin Allergy Unknown vomitting Verified 03/02/22 12:32 <Fili Jones MD - Last Filed: 08/17/22 06:57> Review of Systems Review of Systems: Yes all other systems are reviewed and are negative <Fili Jones MD - Last Filed: 08/17/22 06:57> [facility] Past Medical History Medical History: Medical History Chronic right upper quadrant pain Essential hypertension Hyperlipidemia LDL goal <100 Nausea and vomiting Type 2 diabetes mellitus with hyperglycemia Vitamin D deficiency <Fili Jones MD - Last Filed: 08/17/22 06:57> Surgical History: Surgical History H/O cervical discectomy History of surgical removal of ganglion cyst Hx of cholecystectomy Hx of endoscopy Hx of spinal fusion <Fili Jones MD - Last Filed: 08/17/22 06:57> Family History Family History: Family History Father Lung cancer Diabetes CVD (cardiovascular disease) Mother Diabetes Hypertension <Fili Jones MD - Last Filed: 08/17/22 06:57> Social History Social History: Social History Household Members: Spouse Housing: House Alcohol intake: never Patient Tobacco Use Status: Former Tobacco user Smoked in Last 30 Days: Yes e-Cigarette/Vaping Use: Never Used Second Hand Smoke Exposure: No Use of substances other than those prescribed or required for medical reasons: Yes Substance Use Type: Marijuana Last Used Substance: Just Prior to Admission Advance Directives: No Advance Directives Information Provided: No Current occupational status: unemployed and disabled Current occupation: rt hand Cognitive needs: No Hearing needs: No Vision needs: No <Fili Jones MD - Last Filed: 08/17/22 06:57> Physical Exam Vital Signs: Vital Signs: Last Vital Signs Temp 98.2 F 08/17/22 15:36 Pulse 119 H 08/17/22 15:36 Resp 17 08/17/22 15:36 BP 151/111 H 08/17/22 15:36 Pulse Ox 97 08/17/22 15:36 O2 Del Method 08/17/22 15:36 BMI result Body Mass Index 26.8 <Fili Jones MD - Last Filed: 08/17/22 06:57> Vital Signs: Last Vital Signs Temp 98.2 F 08/17/22 15:36 Pulse 119 H 08/17/22 15:36 Resp 17 08/17/22 15:36 BP 151/111 H 08/17/22 15:36 Pulse Ox 97 08/17/22 15:36 O2 Del Method 08/17/22 15:36 BMI result Body Mass Index 26.8 <Joao Gant MD - Last Filed: 08/17/22 16:04> Appearance: Alert. Oriented X3. No acute distress. Eyes: PERRLA, No Nystagmus ENT: Pharynx normal. Oral Mucosa moist Neck: Normal inspection. Neck supple. CVS: Normal heart rate and rhythm. Pulses normal. Respiratory: No respiratory distress. Equal air entry bilateral, no wheezing/rales/rhonchi Abdomen: Soft and nontender. Bowel sounds are present, no mass palpable, no CVA tenderness Skin: Skin warm and dry. Normal skin color. Normal skin turgor. Extremities: No lower extremity edema. No calf tenderness Neuro: Oriented X 3. No motor deficit. No sensory deficit.No cerebellar signs , cranial nerves II-XII intact psych common cough and denies any significant depression no SI this time no hallucination/ delusion <Fili Jones MD - Last Filed: 08/17/22 06:57> Course Course Course Narrative: 0631: Start physician observation: There are no reported incidents on the patient by the overnight nursing staff. The patient is here for suicidal ideation and is on a Section 12. Patient does have diabetes and his glucose has been high. He does take Lantus at night and was given his dose of Lantus overnight. He was placed on a insulin sliding scale. Patient's medications were reconciled and I did order these medications including Lantus 20 units at night. The patient is waiting to be seen by the care team. The patient will be kept in physician observation in the emergency department Behavioral Care Unit until disposition can be determined. 1604: End physician observation: The patient was seen by the care team and a psych consult was also done. The patient will be discharged with referral to [facility]. <Joao Gant MD - Last Filed: 08/17/22 16:04> Medications Administered Generic Name Dose Route Start Last Admin Trade Name Freq PRN Reason Stop Dose Admin Insulin Human Lispro 0 unit 08/17/22 07:30 08/17/22 13:26 Insulin Lispro 100 Unit/Ml 3 Ml Vial SUBCUT 08/17/22 22:57 10 unit QIDACHS [facility] Administration Protocol Discontinued Medications Generic Name Dose Route Start Last Admin Trade Name Freq PRN Reason Stop Dose Admin Insulin Glargine 20 unit 08/16/22 22:54 08/16/22 23:14 Insulin Glargine,Hum.Rec.Anlog 100 Unit/Ml 10 Ml Vial SUBCUT 08/16/22 22:55 20 unit ONCE ONE Administration Insulin Human Lispro 14 unit 08/16/22 22:54 08/16/22 23:04 Insulin Lispro 100 Unit/Ml 3 Ml Vial SUBCUT 08/16/22 22:55 14 unit ONCE ONE Administration <Fili Jones MD - Last Filed: 08/17/22 06:57> Medications Administered Generic Name Dose Route Start Last Admin Trade Name Freq PRN Reason Stop Dose Admin Insulin Human Lispro 0 unit 08/17/22 07:30 08/17/22 13:26 Insulin Lispro 100 Unit/Ml 3 Ml Vial SUBCUT 08/17/22 22:57 10 unit QIDACHS [facility] Administration Protocol Discontinued Medications Generic Name Dose Route Start Last Admin Trade Name Freq PRN Reason Stop Dose Admin Insulin Glargine 20 unit 08/16/22 22:54 08/16/22 23:14 Insulin Glargine,Hum.Rec.Anlog 100 Unit/Ml 10 Ml Vial SUBCUT 08/16/22 22:55 20 unit ONCE ONE Administration Insulin Human Lispro 14 unit 08/16/22 22:54 08/16/22 23:04 Insulin Lispro 100 Unit/Ml 3 Ml Vial SUBCUT 08/16/22 22:55 14 unit ONCE ONE Administration <Joao Gant MD - Last Filed: 08/17/22 16:04> Medical Decision Making Lab Data MDM Lab Attestation statement: I reviewed the patient's lab results. <Fili Jones MD - Last Joaquin ed: 08/17/22 06:57> Result Diagrams: 08/16/22 22:22 08/16/22 22:22 <Fili Jones MD - Last Filed: 08/17/22 06:57> Labs: Lab Results 02/27/23 02/27/23 02/27/23 Range/Units 22:12 22:22 22:22 WBC 10.8 (4.8-10.8) X10*3/uL RBC 5.50 (4.60-5.80) X10*6/uL Hgb 17.1 (14.0-18.0) g/dl Hct 47.8 (42.0-52.0) % MCV 86.9 (80.0-98.0) fL MCH 31.1 (27.0-33.0) pg MCHC 35.8 (31.0-36.0) g/dl RDW 12.4 (11.0-16.0) % Plt Count 297 (160-400) X10*3/uL MPV 9.8 (9.4-12.4) fL Immature Gran % (Auto) 0.6 H (0.0-0.4) % Neut % (Auto) 67.4 (45-73) % Lymph % (Auto) 20.6 (20-40) % Gregory % (Auto) 9.3 (2-11) % Eos % (Auto) 1.6 (0-4) % Baso % (Auto) 0.5 (0-2) % Lymph # (Auto) 2.2 (1.2-4.9) X10*3/uL Gregory # (Auto) 1.0 (0.1-1.2) X10*3/uL Eos # (Auto) 0.2 (0.0-0.4) X10*3/uL Baso # (Auto) 0.1 (0.0-0.2) X10*3/uL Abs Immat Gran (auto) 0.06 H (0.00-0.03) X10*3/uL Absolute Neuts (auto) 7.3 (2.0-8.3) x10*3/uL Absolute Nucleated RBC 0.000 (0.0-0.012) X10*3/uL Nucleated RBC % (auto) 0.0 (0.0-0.2) /100WBC Sodium 132 L (135-145) mmol/L Potassium 4.4 (3.3-5.1) mmol/L Chloride 94 L (96-108) mmol/L Carbon Dioxide 22 (22-29) mmol/L Anion Gap 20 (12-20) BUN 9 (9-16) mg/dL Creatinine 1.40 (0.5-1.4) mg/dL Estim Creat Clear Calc 71.5 Estimated GFR 54 POC Glucose (60-115) mg/dL Random Glucose 551 H* (60-115) mg/dL Calcium 10.0 (8.4-10.2) mg/dL Total Bilirubin 0.5 (0.0-1.0) mg/dL AST 16 (5-37) U/L ALT 28 (0-40) U/L Alkaline Phosphatase 115 (39-117) U/L Total Protein 8.0 (6.5-8.0) g/dL Albumin 4.7 (3.5-5.0) g/dL Urine Color Urine Appearance Urine pH (5.0-9.0) Ur Specific [place] (1.005-1.025) Urine Protein (Neg-Trace) mg/dL Urine Glucose (UA) (Negative) mg/dL Urine Ketones (Negative) mg/dL Urine Blood (Negative) Urine Nitrite (Negative) Ur Leukocyte Esterase (Negative) Urine RBC (0-2) /HPF Urine WBC (0-5) /HPF Ur Squamous Epith Cells (0-2) /HPF Urine Bacteria (None Seen) Hyaline Casts (0-2) /LPF Salicylates (15-30) mg/dL Urine Opiates Screen (Not Detect) Urine Fentanyl Screen (Not Detect) Acetaminophen (<30) mcg/mL Ur Barbiturates Screen (Not Detect) Ur Phencyclidine Scrn (Not Detect) Ur Amphetamines Screen (Not Detect) U Benzodiazepines Scrn (Not Detect) Urine Cocaine Screen (Not Detect) U Marijuana (THC) Screen (Not Detect) Ethyl Alcohol mg/dL COVID-19 (BOB) Negative (Negative) COVID-19 Clin Com See Note 08/16/22 08/16/22 08/17/22 Range/Units 22:22 22:22 00:07 WBC (4.8-10.8) X10*3/uL RBC (4.60-5.80) X10*6/uL Hgb (14.0-18.0) g/dl Hct (42.0-52.0) % MCV (80.0-98.0) fL MCH (27.0-33.0) pg MCHC (31.0-36.0) g/dl RDW (11.0-16.0) % Plt Count (160-400) X10*3/uL MPV (9.4-12.4) fL Immature Gran % (Auto) (0.0-0.4) % Neut % (Auto) (45-73) % Lymph % (Auto) (20-40) % Gregory % (Auto) (2-11) % Eos % (Auto) (0-4) % Baso % (Auto) (0-2) % Lymph # (Auto) (1.2-4.9) X10*3/uL Gregory # (Auto) (0.1-1.2) X10*3/uL Eos # (Auto) (0.0-0.4) X10*3/uL Baso # (Auto) (0.0-0.2) X10*3/uL Abs Immat Gran (auto) (0.00-0.03) X10*3/uL Absolute Neuts (auto) (2.0-8.3) x10*3/uL Absolute Nucleated RBC (0.0-0.012) X10*3/uL Nucleated RBC % (auto) (0.0-0.2) /100WBC Sodium (135-145) mmol/L Potassium (3.3-5.1) mmol/L Chloride (96-108) mmol/L Carbon Dioxide (22-29) mmol/L Anion Gap (12-20) BUN (9-16) mg/dL Creatinine (0.5-1.4) mg/dL Estim Creat Clear Calc Estimated GFR POC Glucose 463 H* (60-115) mg/dL Random Glucose (60-115) mg/dL Calcium (8.4-10.2) mg/dL Total Bilirubin (0.0-1.0) mg/dL AST (5-37) U/L ALT (0-40) U/L Alkaline Phosphatase (39-117) U/L Total Protein (6.5-8.0) g/dL Albumin (3.5-5.0) g/dL Urine Color Urine Appearance Urine pH (5.0-9.0) Ur Specific [place] (1.005-1.025) Urine Protein (Neg-Trace) mg/dL Urine Glucose (UA) (Negative) mg/dL Urine Ketones (Negative) mg/dL Urine Blood (Negative) Urine Nitrite (Negative) Ur Leukocyte Esterase (Negative) Urine RBC (0-2) /HPF Urine WBC (0-5) /HPF Ur Squamous Epith Cells (0-2) /HPF Urine Bacteria (None Seen) Hyaline Casts (0-2) /LPF Salicylates < 5.0 L (15-30) mg/dL Urine Opiates Screen (Not Detect) Urine Fentanyl Screen (Not Detect) Acetaminophen < 17 (<30) mcg/mL Ur Barbiturates Screen (Not Detect) Ur Phencyclidine Scrn (Not Detect) Ur Amphetamines Screen (Not Detect) U Benzodiazepines Scrn (Not Detect) Urine Cocaine Screen (Not Detect) U Marijuana (THC) Screen (Not Detect) Ethyl Alcohol < 10 mg/dL COVID-19 (BOB) (Negative) COVID-19 Clin Com 08/17/22 08/17/22 08/17/22 Range/Units 00:32 00:32 07:00 WBC (4.8-10.8) X10*3/uL RBC (4.60-5.80) X10*6/uL Hgb (14.0-18.0) g/dl Hct (42.0-52.0) % MCV (80.0-98.0) fL MCH (27.0-33.0) pg MCHC (31.0-36.0) g/dl RDW (11.0-16.0) % Plt Count (160-400) X10*3/uL MPV (9.4-12.4) fL Immature Gran % (Auto) (0.0-0.4) % Neut % (Auto) (45-73) % Lymph % (Auto) (20-40) % Gregory % (Auto) (2-11) % Eos % (Auto) (0-4) % Baso % (Auto) (0-2) % Lymph # (Auto) (1.2-4.9) X10*3/uL Gregory # (Auto) (0.1-1.2) X10*3/uL Eos # (Auto) (0.0-0.4) X10*3/uL Baso # (Auto) (0.0-0.2) X10*3/uL Abs Immat Gran (auto) (0.00-0.03) X10*3/uL Absolute Neuts (auto) (2.0-8.3) x10*3/uL Absolute Nucleated RBC (0.0-0.012) X10*3/uL Nucleated RBC % (auto) (0.0-0.2) /100WBC Sodium (135-145) mmol/L Potassium (3.3-5.1) mmol/L Chloride (96-108) mmol/L Carbon Dioxide (22-29) mmol/L Anion Gap (12-20) BUN (9-16) mg/dL Creatinine (0.5-1.4) mg/dL Estim Creat Clear Calc Estimated GFR POC Glucose 275 H (60-115) mg/dL Random Glucose (60-115) mg/dL Calcium (8.4-10.2) mg/dL Total Bilirubin (0.0-1.0) mg/dL AST (5-37) U/L ALT (0-40) U/L Alkaline Phosphatase (39-117) U/L Total Protein (6.5-8.0) g/dL Albumin (3.5-5.0) g/dL Urine Color Yellow Urine Appearance Clear Urine pH 5.0 (5.0-9.0) Ur Specific [place] >= 1.030 H (1.005-1.025) Urine Protein 30 (1+) H (Neg-Trace) mg/dL Urine Glucose (UA) >=1000 H (Negative) mg/dL Urine Ketones 15 (Negative) mg/dL Urine Blood Negative (Negative) Urine Nitrite Negative (Negative) Ur Leukocyte Esterase Negative (Negative) Urine RBC 0-2 (0-2) /HPF Urine WBC 0-5 (0-5) /HPF Ur Squamous Epith Cells 0-2 (0-2) /HPF Urine Bacteria None Seen (None Seen) Hyaline Casts 3-5 (0-2) /LPF Salicylates (15-30) mg/dL Urine Opiates Screen Not Detected (Not Detect) Urine Fentanyl Screen Not Detected (Not Detect) Acetaminophen (<30) mcg/mL Ur Barbiturates Screen Not Detected (Not Detect) Ur Phencyclidine Scrn Not Detected (Not Detect) Ur Amphetamines Screen Not Detected (Not Detect) U Benzodiazepines Scrn Not Detected (Not Detect) Urine Cocaine Screen Not Detected (Not Detect) U Marijuana (THC) Screen POSITIVE H (Not Detect) Ethyl Alcohol mg/dL COVID-19 (BOB) (Negative) COVID-19 Clin Com 08/17/22 Range/Units 13:16 WBC (4.8-10.8) X10*3/uL RBC (4.60-5.80) X10*6/uL Hgb (14.0-18.0) g/dl Hct (42.0-52.0) % MCV (80.0-98.0) fL MCH (27.0-33.0) pg MCHC (31.0-36.0) g/dl RDW (11.0-16.0) % Plt Count (160-400) X10*3/uL MPV (9.4-12.4) fL Immature Gran % (Auto) (0.0-0.4) % Neut % (Auto) (45-73) % Lymph % (Auto) (20-40) % Gregory % (Auto) (2-11) % Eos % (Auto) (0-4) % Baso % (Auto) (0-2) % Lymph # (Auto) (1.2-4.9) X10*3/uL Gregory # (Auto) (0.1-1.2) X10*3/uL Eos # (Auto) (0.0-0.4) X10*3/uL Baso # (Auto) (0.0-0.2) X10*3/uL Abs Immat Gran (auto) (0.00-0.03) X10*3/uL Absolute Neuts (auto) (2.0-8.3) x10*3/uL Absolute Nucleated RBC (0.0-0.012) X10*3/uL Nucleated RBC % (auto) (0.0-0.2) /100WBC Sodium (135-145) mmol/L Potassium (3.3-5.1) mmol/L Chloride (96-108) mmol/L Carbon Dioxide (22-29) mmol/L Anion Gap (12-20) BUN (9-16) mg/dL Creatinine (0.5-1.4) mg/dL Estim Creat Clear Calc Estimated GFR POC Glucose 339 H (60-115) mg/dL Random Glucose (60-115) mg/dL Calcium (8.4-10.2) mg/dL Total Bilirubin (0.0-1.0) mg/dL AST (5-37) U/L ALT (0-40) U/L Alkaline Phosphatase (39-117) U/L Total Protein (6.5-8.0) g/dL Albumin (3.5-5.0) g/dL Urine Color Urine Appearance Urine pH (5.0-9.0) Ur Specific [place] (1.005-1.025) Urine Protein (Neg-Trace) mg/dL Urine Glucose (UA) (Negative) mg/dL Urine Ketones (Negative) mg/dL Urine Blood (Negative) Urine Nitrite (Negative) Ur Leukocyte Esterase (Negative) Urine RBC (0-2) /HPF Urine WBC (0-5) /HPF Ur Squamous Epith Cells (0-2) /HPF Urine Bacteria (None Seen) Hyaline Casts (0-2) /LPF Salicylates (15-30) mg/dL Urine Opiates Screen (Not Detect) Urine Fentanyl Screen (Not Detect) Acetaminophen (<30) mcg/mL Ur Barbiturates Screen (Not Detect) Ur Phencyclidine Scrn (Not Detect) Ur Amphetamines Screen (Not Detect) U Benzodiazepines Scrn (Not Detect) Urine Cocaine Screen (Not Detect) U Marijuana (THC) Screen (Not Detect) Ethyl Alcohol mg/dL COVID-19 (BOB) (Negative) COVID-19 Clin Com <Fili Jones MD - Last Filed: 08/17/22 06:57> Lab Results 08/16/22 08/16/22 08/16/22 Range/Units 22:12 22:22 22:22 WBC 10.8 (4.8-10.8) X10*3/uL RBC 5.50 (4.60-5.80) X10*6/uL Hgb 17.1 (14.0-18.0) g/dl Hct 47.8 (42.0-52.0) % MCV 86.9 (80.0-98.0) fL MCH 31.1 (27.0-33.0) pg MCHC 35.8 (31.0-36.0) g/dl RDW 12.4 (11.0-16.0) % Plt Count 297 (160-400) X10*3/uL MPV 9.8 (9.4-12.4) fL Immature Gran % (Auto) 0.6 H (0.0-0.4) % Neut % (Auto) 67.4 (45-73) % Lymph % (Auto) 20.6 (20-40) % Gregory % (Auto) 9.3 (2-11) % Eos % (Auto) 1.6 (0-4) % Baso % (Auto) 0.5 (0-2) % Lymph # (Auto) 2.2 (1.2-4.9) X10*3/uL Gregory # (Auto) 1.0 (0.1-1.2) X10*3/uL Eos # (Auto) 0.2 (0.0-0.4) X10*3/uL Baso # (Auto) 0.1 (0.0-0.2) X10*3/uL Abs Immat Gran (auto) 0.06 H (0.00-0.03) X10*3/uL Absolute Neuts (auto) 7.3 (2.0-8.3) x10*3/uL Absolute Nucleated RBC 0.000 (0.0-0.012) X10*3/uL Nucleated RBC % (auto) 0.0 (0.0-0.2) /100WBC Sodium 132 L (135-145) mmol/L Potassium 4.4 (3.3-5.1) mmol/L Chloride 94 L (96-108) mmol/L Carbon Dioxide 22 (22-29) mmol/L Anion Gap 20 (12-20) BUN 9 (9-16) mg/dL Creatinine 1.40 (0.5-1.4) mg/dL Estim Creat Clear Calc 71.5 Estimated GFR 54 POC Glucose (60-115) mg/dL Random Glucose 551 H* (60-115) mg/dL Calcium 10.0 (8.4-10.2) mg/dL Total Bilirubin 0.5 (0.0-1.0) mg/dL AST 16 (5-37) U/L ALT 28 (0-40) U/L Alkaline Phosphatase 115 (39-117) U/L Total Protein 8.0 (6.5-8.0) g/dL Albumin 4.7 (3.5-5.0) g/dL Urine Color Urine Appearance Urine pH (5.0-9.0) Ur Specific [place] (1.005-1.025) Urine Protein (Neg-Trace) mg/dL Urine Glucose (UA) (Negative) mg/dL Urine Ketones (Negative) mg/dL Urine Blood (Negative) Urine Nitrite (Negative) Ur Leukocyte Esterase (Negative) Urine RBC (0-2) /HPF Urine WBC (0-5) /HPF Ur Squamous Epith Cells (0-2) /HPF Urine Bacteria (None Seen) Hyaline Casts (0-2) /LPF Salicylates (15-30) mg/dL Urine Opiates Screen (Not Detect) Urine Fentanyl Screen (Not Detect) Acetaminophen (<30) mcg/mL Ur Barbiturates Screen (Not Detect) Ur Phencyclidine Scrn (Not Detect) Ur Amphetamines Screen (Not Detect) U Benzodiazepines Scrn (Not Detect) Urine Cocaine Screen (Not Detect) U Marijuana (THC) Screen (Not Detect) Ethyl Alcohol mg/dL COVID-19 (BOB) Negative (Negative) COVID-19 Clin Com See Note 08/16/22 08/16/22 08/17/22 Range/Units 22:22 22:22 00:07 WBC (4.8-10.8) X10*3/uL RBC (4.60-5.80) X10*6/uL Hgb (14.0-18.0) g/dl Hct (42.0-52.0) % MCV (80.0-98.0) fL MCH (27.0-33.0) pg MCHC (31.0-36.0) g/dl RDW (11.0-16.0) % Plt Count (160-400) X10*3/uL MPV (9.4-12.4) fL Immature Gran % (Auto) (0.0-0.4) % Neut % (Auto) (45-73) % Lymph % (Auto) (20-40) % Gregory % (Auto) (2-11) % Eos % (Auto) (0-4) % Baso % (Auto) (0-2) % Lymph # (Auto) (1.2-4.9) X10*3/uL Gregory # (Auto) (0.1-1.2) X10*3/uL Eos # (Auto) (0.0-0.4) X10*3/uL Baso # (Auto) (0.0-0.2) X10*3/uL Abs Immat Gran (auto) (0.00-0.03) X10*3/uL Absolute Neuts (auto) (2.0-8.3) x10*3/uL Absolute Nucleated RBC (0.0-0.012) X10*3/uL Nucleated RBC % (auto) (0.0-0.2) /100WBC Sodium (135-145) mmol/L Potassium (3.3-5.1) mmol/L Chloride (96-108) mmol/L Carbon Dioxide (22-29) mmol/L Anion Gap (12-20) BUN (9-16) mg/dL Creatinine (0.5-1.4) mg/dL Estim Creat Clear Calc Estimated GFR POC Glucose 463 H* (60-115) mg/dL Random Glucose (60-115) mg/dL Calcium (8.4-10.2) mg/dL Total Bilirubin (0.0-1.0) mg/dL AST (5-37) U/L ALT (0-40) U/L Alkaline Phosphatase (39-117) U/L Total Protein (6.5-8.0) g/dL Albumin (3.5-5.0) g/dL Urine Color Urine Appearance Urine pH (5.0-9.0) Ur Specific [place] (1.005-1.025) Urine Protein (Neg-Trace) mg/dL Urine Glucose (UA) (Negative) mg/dL Urine Ketones (Negative) mg/dL Urine Blood (Negative) Urine Nitrite (Negative) Ur Leukocyte Esterase (Negative) Urine RBC (0-2) /HPF Urine WBC (0-5) /HPF Ur Squamous Epith Cells (0-2) /HPF Urine Bacteria (None Seen) Hyaline Casts (0-2) /LPF Salicylates < 5.0 L (15-30) mg/dL Urine Opiates Screen (Not Detect) Urine Fentanyl Screen (Not Detect) Acetaminophen < 17 (<30) mcg/mL Ur Barbiturates Screen (Not Detect) Ur Phencyclidine Scrn (Not Detect) Ur Amphetamines Screen (Not Detect) U Benzodiazepines Scrn (Not Detect) Urine Cocaine Screen (Not Detect) U Marijuana (THC) Screen (Not Detect) Ethyl Alcohol < 10 mg/dL COVID-19 (BOB) (Negative) COVID-19 Clin Com 08/17/22 08/17/22 08/17/22 Range/Units 00:32 00:32 07:00 WBC (4.8-10.8) X10*3/uL RBC (4.60-5.80) X10*6/uL Hgb (14.0-18.0) g/dl Hct (42.0-52.0) % MCV (80.0-98.0) fL MCH (27.0-33.0) pg MCHC (31.0-36.0) g/dl RDW (11.0-16.0) % Plt Count (160-400) X10*3/uL MPV (9.4-12.4) fL Immature Gran % (Auto) (0.0-0.4) % Neut % (Auto) (45-73) % Lymph % (Auto) (20-40) % Gregory % (Auto) (2-11) % Eos % (Auto) (0-4) % Baso % (Auto) (0-2) % Lymph # (Auto) (1.2-4.9) X10*3/uL Gregory # (Auto) (0.1-1.2) X10*3/uL Eos # (Auto) (0.0-0.4) X10*3/uL Baso # (Auto) (0.0-0.2) X10*3/uL Abs Immat Gran (auto) (0.00-0.03) X10*3/uL Absolute Neuts (auto) (2.0-8.3) x10*3/uL Absolute Nucleated RBC (0.0-0.012) X10*3/uL Nucleated RBC % (auto) (0.0-0.2) /100WBC Sodium (135-145) mmol/L Potassium (3.3-5.1) mmol/L Chloride (96-108) mmol/L Carbon Dioxide (22-29) mmol/L Anion Gap (12-20) BUN (9-16) mg/dL Creatinine (0.5-1.4) mg/dL Estim Creat Clear Calc Estimated GFR POC Glucose 275 H (60-115) mg/dL Random Glucose (60-115) mg/dL Calcium (8.4-10.2) mg/dL Total Bilirubin (0.0-1.0) mg/dL AST (5-37) U/L ALT (0-40) U/L Alkaline Phosphatase (39-117) U/L Total Protein (6.5-8.0) g/dL Albumin (3.5-5.0) g/dL Urine Color Yellow Urine Appearance Clear Urine pH 5.0 (5.0-9.0) Ur Specific [place] >= 1.030 H (1.005-1.025) Urine Protein 30 (1+) H (Neg-Trace) mg/dL Urine Glucose (UA) >=1000 H (Negative) mg/dL Urine Ketones 15 (Negative) mg/dL Urine Blood Negative (Negative) Urine Nitrite Negative (Negative) Ur Leukocyte Esterase Negative (Negative) Urine RBC 0-2 (0-2) /HPF Urine WBC 0-5 (0-5) /HPF Ur Squamous Epith Cells 0-2 (0-2) /HPF Urine Bacteria None Seen (None Seen) Hyaline Casts 3-5 (0-2) /LPF Salicylates (15-30) mg/dL Urine Opiates Screen Not Detected (Not Detect) Urine Fentanyl Screen Not Detected (Not Detect) Acetaminophen (<30) mcg/mL Ur Barbiturates Screen Not Detected (Not Detect) Ur Phencyclidine Scrn Not Detected (Not Detect) Ur Amphetamines Screen Not Detected (Not Detect) U Benzodiazepines Scrn Not Detected (Not Detect) Urine Cocaine Screen Not Detected (Not Detect) U Marijuana (THC) Screen POSITIVE H (Not Detect) Ethyl Alcohol mg/dL COVID-19 (BOB) (Negative) COVID-19 Clin Com 08/17/22 Range/Units 13:16 WBC (4.8-10.8) X10*3/uL RBC (4.60-5.80) X10*6/uL Hgb (14.0-18.0) g/dl Hct (42.0-52.0) % MCV (80.0-98.0) fL MCH (27.0-33.0) pg MCHC (31.0-36.0) g/dl RDW (11.0-16.0) % Plt Count (160-400) X10*3/uL MPV (9.4-12.4) fL Immature Gran % (Auto) (0.0-0.4) % Neut % (Auto) (45-73) % Lymph % (Auto) (20-40) % Gregory % (Auto) (2-11) % Eos % (Auto) (0-4) % Baso % (Auto) (0-2) % Lymph # (Auto) (1.2-4.9) X10*3/uL Gregory # (Auto) (0.1-1.2) X10*3/uL Eos # (Auto) (0.0-0.4) X10*3/uL Baso # (Auto) (0.0-0.2) X10*3/uL Abs Immat Gran (auto) (0.00-0.03) X10*3/uL Absolute Neuts (auto) (2.0-8.3) x10*3/uL Absolute Nucleated RBC (0.0-0.012) X10*3/uL Nucleated RBC % (auto) (0.0-0.2) /100WBC Sodium (135-145) mmol/L Potassium (3.3-5.1) mmol/L Chloride (96-108) mmol/L Carbon Dioxide (22-29) mmol/L Anion Gap (12-20) BUN (9-16) mg/dL Creatinine (0.5-1.4) mg/dL Estim Creat Clear Calc Estimated GFR POC Glucose 339 H (60-115) mg/dL Random Glucose (60-115) mg/dL Calcium (8.4-10.2) mg/dL Total Bilirubin (0.0-1.0) mg/dL AST (5-37) U/L ALT (0-40) U/L Alkaline Phosphatase (39-117) U/L Total Protein (6.5-8.0) g/dL Albumin (3.5-5.0) g/dL Urine Color Urine Appearance Urine pH (5.0-9.0) Ur Specific [place] (1.005-1.025) Urine Protein (Neg-Trace) mg/dL Urine Glucose (UA) (Negative) mg/dL Urine Ketones (Negative) mg/dL Urine Blood (Negative) Urine Nitrite (Negative) Ur Leukocyte Esterase (Negative) Urine RBC (0-2) /HPF Urine WBC (0-5) /HPF Ur Squamous Epith Cells (0-2) /HPF Urine Bacteria (None Seen) Hyaline Casts (0-2) /LPF Salicylates (15-30) mg/dL Urine Opiates Screen (Not Detect) Urine Fentanyl Screen (Not Detect) Acetaminophen (<30) mcg/mL Ur Barbiturates Screen (Not Detect) Ur Phencyclidine Scrn (Not Detect) Ur Amphetamines Screen (Not Detect) U Benzodiazepines Scrn (Not Detect) Urine Cocaine Screen (Not Detect) U Marijuana (THC) Screen (Not Detect) Ethyl Alcohol mg/dL COVID-19 (BOB) (Negative) COVID-19 Clin Com <Joao Gant MD - Last Filed: 08/17/22 16:04> Discharge Plan Discharge Clinical Impression: Depression with suicidal ideation, Type 2 diabetes mellitus with hyperglycemia <Fili Jones MD - Last Filed: 08/17/22 06:57> Patient Disposition: Still a Patient <Fili Jones MD - Last Filed: 08/17/22 06:57> Prescriptions: No Action Trulicity 3 mg/0.5 mL pen injector 0.5 ml subcut QWEEK cyclobenzaprine 5 mg tablet 1 tab PO TID PRN (Reason: muscle spasm) atorvastatin 20 mg tablet 20 mg PO BEDTIME 90 Days Qty: 90 1RF <Fili Jones MD - Last Filed: 08/17/22 06:57> Interventions: Orange-Suicide Risk Severity Scale Last Done: 08/17/22 14:00 <Fili Jones MD - Last Filed: 08/17/22 06:57>
[2022-08-16] MEDS: Insulin Lispro 100 UNIT/ML 3 ML VIAL 14 UNIT SUBCUT (23:04)
[2022-08-16] MEDS: Insulin Glargine,Hum.rec.anlog 100 UNIT/ML 10 ML VIAL 20 UNIT SUBCUT (23:14)
[2022-08-17 00:12] LABS: Glucose, Whole Blood 463 mg/dL (60-115)
[2022-08-17 00:43] LABS: Appearance Urine Clear; Color Urine Yellow; Glucose Urine UA >=1000 mg/dL (Negative); Leukocyte Esterase Urine Negative (Negative); Nitrite Urine Negative (Negative); Specific Gravity - Urine >= 1.030 (1.005-1.025); UMIC TRIGGER UA YES; Urine Blood Negative (Negative); Urine Ketones 15 mg/dL (Negative); Urine Protein 30 (1+) mg/dL (Neg-Trace)
[2022-08-17 00:46] LABS: Bacteria Urine None Seen (None Seen); RBC Urine 0-2 /HPF (0-2); Squamous Epithelial Cell Urine 0-2 /HPF (0-2); WBC Urine 0-5 /HPF (0-5)
[2022-08-17 01:02] LABS: Amphetamine Screen Urine Not Detected (Not Detect); Barbiturates, Urine Not Detected (Not Detect); Benzodiazepines Screen Urine Not Detected (Not Detect); Cannabinoid Screen Urine POSITIVE (Not Detect); Cocaine Screen Urine Not Detected (Not Detect); Fentanyl, urine Not Detected (Not Detect); Opiate Screen Urine Not Detected (Not Detect); Phencyclidine Screen Urine Not Detected (Not Detect)
--- NOTE | 2022-08-17 01:27 | PC.NURSE ---
Patient is bed appears sleeping, no distress observed/reported at this time, behavior non concerning, med rec completed/pending provider's approval, Blood sugar at 2222 was 551/provider notified/ordered lispro 14 units administered at 2304 and Lantus 20 units administered at 2314, care consult ordered/pending care team evaluation, will continue to monitor.
[2022-08-17 07:06] LABS: Glucose, Whole Blood 275 mg/dL (60-115)
[2022-08-17] MEDS: Insulin Lispro 100 UNIT/ML 3 ML VIAL SUBCUT ×2 (07:11→13:26)
[2022-08-17 07:30] VITALS: BP 139/105; BP 147/102; PULSE 112; RESP 20; TEMP 36.8; O2SAT 98
--- NOTE | 2022-08-17 11:57 | PC.NURSE ---
Pt engaging appropriately with staff, in no acute distress at this time.
[2022-08-17 13:20] LABS: Glucose, Whole Blood 339 mg/dL (60-115)
--- NOTE | 2022-08-17 14:36 | PC.NURSE ---
PT DENIES SUICIDALITY AT THIS TIME, THOUGH TEARFUL STATING HE HAS BEEN UNABLE TO HOLD BACK TEARS FOR DAYS. MAKING GOOD EYE CONTACT WITH STAFF, ENGAGING APPROPRIATELY IN CONVERSATION. PT ATE WELL TODAY. BEHAVIOURS ON THE POD HAVE BEEN NONCONCERNING TODAY. BLOOD SUGARS ELEVATED, MEDICATED INDICATED BY INSULIN SLIDING SCALE.
--- NOTE | 2022-08-17 15:06 | PM.PSYCN ---
History of Present Illness Date of Service: 08/17/2022 Chief Complaint: Crisis Reason for Consult: suicidal ideation Requesting physician: Lilia Justice Discussed with referring provider: Yes Sources of Information: patient interviewed, chart reviewed and crisis/core team assessment reviewed HPI Narrative: Mr. Huertas is a 46 year-old male with hx of MDD. Pt [place] [address] [place] police after called 911 reporting pt appeared to be trying to either hand himself or cut himself. Utox positive for cannabinoids. In the ED- pt reports he has been feeling more tearful in the past few weeks. He denies suicidal or homicidal ideation. He reports some stressors related to relationship with and financial but effect of these on his mood is limited. Pt adamantly denies suicidal or homicidal ideation. He reports he went to garage to vent/ His saw him crying and in distress. She couldn't open the door and pt states he did not realized door was locked. called 911. Pt also reports since restarting gabapentin mood has been off. Care team NELLIE Gordon spoke with who also reports pt has been depressed, she does not think now that he would hurt himself but she was worried at the moment about his safety. denies any safety concerns and agrees that pt safe to return to their home. No Hx of VH/AH. [facility] Medical History Chronic right upper quadrant pain Essential hypertension Hyperlipidemia LDL goal <100 Nausea and vomiting Type 2 diabetes mellitus with hyperglycemia Vitamin D deficiency Surgical History H/O cervical discectomy History of surgical removal of ganglion cyst Hx of cholecystectomy Hx of endoscopy Hx of spinal fusion Diagnostics Vital Signs (24Hr): Vital Signs - 24 hr 08/16/22 22:04 08/17/22 07:30 08/17/22 07:30 Temperature 98.4 F 98.2 F Pulse Rate 125 H 112 H Respiratory Rate 18 20 Blood Pressure 153/112 H 147/102 H 139/105 H Pulse Oximetry 97 98 Oxygen Delivery Method Room Air Room Air BMI result Body Mass Index 26.8 Labs 08/16/22 22:22 08/16/22 22:22 Labs: Laboratory Results - last 48 hr 08/16/22 08/16/22 08/16/22 22:12 22:22 22:22 WBC 10.8 RBC 5.50 Hgb 17.1 Hct 47.8 MCV 86.9 MCH 31.1 MCHC 35.8 RDW 12.4 Plt Count 297 MPV 9.8 Immature Gran % (Auto) 0.6 H Neut % (Auto) 67.4 Lymph % (Auto) 20.6 [place] % (Auto) 9.3 Eos % (Auto) 1.6 Baso % (Auto) 0.5 Lymph # (Auto) 2.2 [place] # (Auto) 1.0 Eos # (Auto) 0.2 Baso # (Auto) 0.1 Abs Immat Gran (auto) 0.06 H Absolute Neuts (auto) 7.3 Absolute Nucleated RBC 0.000 Nucleated RBC % (auto) 0.0 Sodium 132 L Potassium 4.4 Chloride 94 L Carbon Dioxide 22 Anion Gap 20 BUN 9 Creatinine 1.40 Estim Creat Clear Calc 71.5 Estimated GFR 54 POC Glucose Random Glucose 551 H* Calcium 10.0 Total Bilirubin 0.5 AST 16 ALT 28 Alkaline Phosphatase 115 Total Protein 8.0 Albumin 4.7 Urine Color Urine Appearance Urine pH Ur Specific [place] Urine Protein Urine Glucose (UA) Urine Ketones Urine Blood Urine Nitrite Ur Leukocyte Esterase Urine RBC Urine WBC Ur Squamous Epith Cells Urine Bacteria Hyaline Casts Salicylates Urine Opiates Screen Urine Fentanyl Screen Acetaminophen Ur Barbiturates Screen Ur Phencyclidine Scrn Ur Amphetamines Screen U Benzodiazepines Scrn Urine Cocaine Screen U Marijuana (THC) Screen Ethyl Alcohol COVID-19 (BOB) Negative COVID-19 Clin Com See Note 08/16/22 08/16/22 08/17/22 22:22 22:22 00:07 WBC RBC Hgb Hct MCV MCH MCHC RDW Plt Count MPV Immature Gran % (Auto) Neut % (Auto) Lymph % (Auto) [place] % (Auto) Eos % (Auto) Baso % (Auto) Lymph # (Auto) [place] # (Auto) Eos # (Auto) Baso # (Auto) Abs Immat Gran (auto) Absolute Neuts (auto) Absolute Nucleated RBC Nucleated RBC % (auto) Sodium Potassium Chloride Carbon Dioxide Anion Gap BUN Creatinine Estim Creat Clear Calc Estimated GFR POC Glucose 463 H* Random Glucose Calcium Total Bilirubin AST ALT Alkaline Phosphatase Total Protein Albumin Urine Color Urine Appearance Urine pH Ur Specific [place] Urine Protein Urine Glucose (UA) Urine Ketones Urine Blood Urine Nitrite Ur Leukocyte Esterase Urine RBC Urine WBC Ur Squamous Epith Cells Urine Bacteria Hyaline Casts Salicylates < 5.0 L Urine Opiates Screen Urine Fentanyl Screen Acetaminophen < 17 Ur Barbiturates Screen Ur Phencyclidine Scrn Ur Amphetamines Screen U Benzodiazepines Scrn Urine Cocaine Screen U Marijuana (THC) Screen Ethyl Alcohol < 10 COVID-19 (BOB) COVID-19 [employer] Com 08/17/22 08/17/22 08/17/22 00:32 00:32 07:00 WBC RBC Hgb Hct MCV MCH MCHC RDW Plt Count MPV Immature Gran % (Auto) Neut % (Auto) Lymph % (Auto) [place] % (Auto) Eos % (Auto) Baso % (Auto) Lymph # (Auto) [place] # (Auto) Eos # (Auto) Baso # (Auto) Abs Immat Gran (auto) Absolute Neuts (auto) Absolute Nucleated RBC Nucleated RBC % (auto) Sodium Potassium Chloride Carbon Dioxide Anion Gap BUN Creatinine Estim Creat Clear Calc Estimated GFR POC Glucose 275 H Random Glucose Calcium Total Bilirubin AST ALT Alkaline Phosphatase Total Protein Albumin Urine Color Yellow Urine Appearance Clear Urine pH 5.0 Ur Specific [place] >= 1.030 H Urine Protein 30 (1+) H Urine Glucose (UA) >=1000 H Urine Ketones 15 Urine Blood Negative Urine Nitrite Negative Ur Leukocyte Esterase Negative Urine RBC 0-2 Urine WBC 0-5 Ur Squamous Epith Cells 0-2 Urine Bacteria None Seen Hyaline Casts 3-5 Salicylates Urine Opiates Screen Not Detected Urine Fentanyl Screen Not Detected Acetaminophen Ur Barbiturates Screen Not Detected Ur Phencyclidine Scrn Not Detected Ur Amphetamines Screen Not Detected U Benzodiazepines Scrn Not Detected Urine Cocaine Screen Not Detected U Marijuana (THC) Screen POSITIVE H Ethyl Alcohol COVID-19 (BOB) COVID-19 [employer] Com 08/17/22 13:16 WBC RBC Hgb Hct MCV MCH MCHC RDW Plt Count MPV Immature Gran % (Auto) Neut % (Auto) Lymph % (Auto) [place] % (Auto) Eos % (Auto) Baso % (Auto) Lymph # (Auto) [place] # (Auto) Eos # (Auto) Baso # (Auto) Abs Immat Gran (auto) Absolute Neuts (auto) Absolute Nucleated RBC Nucleated RBC % (auto) Sodium Potassium Chloride Carbon Dioxide Anion Gap BUN Creatinine Estim Creat Clear Calc Estimated GFR POC Glucose 339 H Random Glucose Calcium Total Bilirubin AST ALT Alkaline Phosphatase Total Protein Albumin Urine Color Urine Appearance Urine pH Ur Specific [place] Urine Protein Urine Glucose (UA) Urine Ketones Urine Blood Urine Nitrite Ur Leukocyte Esterase Urine RBC Urine WBC Ur Squamous Epith Cells Urine Bacteria Hyaline Casts Salicylates Urine Opiates Screen Urine Fentanyl Screen Acetaminophen Ur Barbiturates Screen Ur Phencyclidine Scrn Ur Amphetamines Screen U Benzodiazepines Scrn Urine Cocaine Screen U Marijuana (THC) Screen Ethyl Alcohol COVID-19 (BOB) COVID-19 Clin Com Mental Status Exam Mental Status Exam Narrative: Appearance: wearing hospital gown, in NAD Behavior: cooperative Speech: clear, normal rate/rhythm/volume, spontaneous TP: linear TC: no psychosis, tearful but future oriented in that he is looking forward to see his Mood: better Affect: brightens at times, tearful when telling events leading to this admission. SI: adamantly denies HI: none VH/AH: none Delusions: none Insight/judgment: fair x 2. memory/cog: alert, oriented x 3. grossly intact to conversational testing. Medications Medications Current Medications Insulin Glargine (Insulin Glargine,Hum.Rec.Anlog 100 Unit/Ml 10 Ml Vial) 20 unit SUBCUT BEDTIME KADEN Insulin Human Lispro (Insulin Lispro 100 Unit/Ml 3 Ml Vial) 0 unit SUBCUT QIDACHS KADEN; Protocol Stop: 08/17/22 22:57 Last Admin: 08/17/22 13:26 Dose: 10 unit Allergies Allergies Allergy/AdvReac Type Severity Reaction Status Date / Time amoxicillin Allergy Unknown vomitting Verified 03/02/22 12:32 Assessment & Plan Assessment & Plan (1) MDD (major depressive disorder), single episode, moderate: Status: Acute Code(s): F32.1 - Major depressive disorder, single episode, moderate Plan Mr. Huertas is a 46 year-old male with hx of MDD who was brought via EMS on [address] after called police as thought pt was trying to hand himself. Pt in ED endorses depressed mood and feeling off for some weeks but adamantly denies any plan or intent to harm himself. Utox positive for cannabinods. He reports he has been on medications on the past but had side effects and can't remember names. He also reports he has been on gabapentin twice and his mood is off whe taking this medications, which could be a possibility as it may have worsened depression. He agrees to follow up with PCP who has referred him to OP psych tx. PLAN 1. Both pt and denied suicidal or homicidal ideation. Pt does admit to feeling overwhelmed, more tearful and off in past few weeks but denies any plan or intent to harm himself. denies any safety concerns in terms suicidal ideation, plan or intent. Both advocate for OP follow up with his PCP. Given no imminent safety concern and given that pt will be with his and both agree to return or call 911 in event of worsening mood, pt can safely be discharged home today. Total time managing care of this patient today ____ minutes.
[2022-08-17 15:36] VITALS: BP 151/111; PULSE 119; RESP 17; TEMP 36.8; O2SAT 97
--- NOTE | 2022-08-18 14:07 | MHC.CARE ---
Referral completed for outpatient therapy @ [facility] [place]
== END 2022-08-17 16:15 | disposition home or self-care (01) ==
PROVIDERS: Internal Medicine; Emergency Provider Emergency Medicine Emergency Medical Services; PCP Nurse Practitioner Family
DX: F32.A Depression, unspecified (principal); R45.851 Suicidal ideations; E11.65 Type 2 diabetes mellitus with hyperglycemia; Z20.822 Contact with and (suspected) exposure to COVID-19; I10 Essential (primary) hypertension; E78.5 Hyperlipidemia, unspecified; Z79.85 Long-term (current) use of injectable non-insulin antidiabetic drugs; Z79.02 Long term (current) use of antithrombotics/antiplatelets; Z79.899 Other long term (current) drug therapy
CPT/HCPCS: 36415; 80053; 80143; 80179; 80307; 81001; 82077; 82947; 85025; 87635; 99284

== ENCOUNTER → 2022-09-16 12:24 | Outpatient (BNVA) | payer MEDICARE, MEDICAID, SELFPAY | PROVIDERS: PCP Nurse Practitioner Family; Referring Provider Nurse Practitioner Family; Visit Provider Physician Assistant | DX: K21.9 Gastro-esophageal reflux disease without esophagitis (principal); R10.11 Right upper quadrant pain; R11.2 Nausea with vomiting, unspecified; G89.29 Other chronic pain | CPT/HCPCS: 99212 ==

== ENCOUNTER 2022-10-12 08:40 | Outpatient (REF) | payer MEDICARE, MEDICAID, SELFPAY ==
--- NOTE | ~2022-10-12 | US_ITS ---
EXAMINATION: US ABDOMEN COMPLETE CLINICAL INFORMATION: Right upper quadrant pain. COMPARISON: Ultrasound abdomen complete 12/25/2020. CT abdomen and pelvis 03/24/2018. TECHNIQUE: Real-time imaging of the abdominal viscera. FINDINGS: PANCREAS: Visualized portions of the pancreas are unremarkable. The pancreatic tail is obscured by bowel gas. ABDOMINAL AORTA: Aortic atherosclerotic calcifications of the distal aorta. INFERIOR VENA CAVA: Visualized portions are normal. LIVER: The liver is normal in size. The liver contour is normal. Diffuse increased echogenicity of the liver parenchyma. No focal hepatic lesion. There is no intrahepatic biliary duct dilatation seen. GALLBLADDER: Surgically absent. COMMON BILE DUCT: Normal in caliber measuring 0.4 cm in diameter. RIGHT KIDNEY: Normal. No hydronephrosis. No renal calculi or focal parenchymal lesions. The kidney measures 11.4 cm in maximum dimension. LEFT KIDNEY: Normal. No hydronephrosis. No renal calculi or focal parenchymal lesions. The kidney measures 11.2 cm in maximum dimension. SPLEEN: Normal. The spleen measures 12.5 cm in maximum dimension. FREE FLUID: None. US/US abdomen complete IMPRESSION: * Diffuse increased echogenicity of the liver parenchyma likely reflects hepatic steatosis. * Aortic atherosclerotic calcifications of the distal aorta.
[2022-10-12 11:26] LABS: MANUAL DIFF FLAG NO
[2022-10-12 11:40] LABS: Appearance Urine Turbid; Color Urine Yellow; Glucose Urine UA 500 mg/dL (Negative); Leukocyte Esterase Urine Negative (Negative); Nitrite Urine Negative (Negative); PH 5.5 (5.0-9.0); Urine Blood Negative (Negative); Urine Ketones Trace mg/dL (Negative); Urine Protein Trace mg/dL (Neg-Trace)
[2022-10-12 12:06] LABS: Basophils Absolute Auto 0.1 X10*3/uL (0.0-0.2); Basophils Percent Auto 0.8 % (0-2); Eosinophils Absolute Auto 0.3 X10*3/uL (0.0-0.4); Eosinophils Percent Auto 4.4 % (0-4); Hemoglobin 15.6 g/dl (14.0-18.0); Imm Gran Abs Auto 0.04 X10*3/uL (0.00-0.03); Imm Gran Pct Auto 0.6 % (0.0-0.4); Lymphocytes Absolute Auto 1.8 X10*3/uL (1.2-4.9); Lymphocytes Percent Auto 25.8 % (20-40); Mean Corpuscular HGB Conc 33.9 g/dl (31.0-36.0); Mean Corpuscular Hemoglobin 31.1 pg (27.0-33.0); Mean Corpuscular Volume 91.6 fL (80.0-98.0); Mean Platelet Volume 10.2 fL (9.4-12.4); Monocytes Absolute Auto 0.7 X10*3/uL (0.1-1.2); Monocytes Percent Auto 9.5 % (2-11); Neutrophils Absolute Auto 4.2 x10*3/uL (2.0-8.3); Neutrophils Percent Auto 58.9 % (45-73); Platelet Count 305 X10*3/uL (160-400); Red Blood Count 5.02 X10*6/uL (4.60-5.80); Red Cell Distribution Width 12.7 % (11.0-16.0); White Blood Count 7.1 X10*3/uL (4.8-10.8)
[2022-10-12 12:08] LABS: Estimated Average Glucose 255 mg/dL; Hemoglobin A1c % 10.5 %
[2022-10-12 13:22] LABS: Alanine Aminotransferase 26 U/L (0-40); Albumin Level 4.4 g/dL (3.5-5.0); Alkaline Phosphatase 80 U/L (39-117); Anion Gap 15 (12-20); Aspartate Amino Transferase 14 U/L (5-37); Bilirubin Total 0.3 mg/dL (0.0-1.0); Blood Urea Nitrogen 13 mg/dL (9-16); Calcium 9.6 mg/dL (8.4-10.2); Carbon Dioxide 27 mmol/L (22-29); Chloride 101 mmol/L (96-108); Cholesterol 234 mg/dL; Estimated Glomerular Filt Rate > 60; Glucose Fasting 241 mg/dL (60-99); HDL Cholesterol 37 mg/dL; Potassium 4.6 mmol/L (3.3-5.1); Sodium 138 mmol/L (135-145); Total Protein 7.2 g/dL (6.5-8.0); Triglycerides 449 mg/dL
[2022-10-12 13:39] LABS: TSH reflex Free T4 3.54 uIU/mL (0.32-4.0)
== END 2022-10-12 08:41 | disposition home or self-care (01) ==
LOC: HO.HMGCX 08:40
PROVIDERS: PCP Nurse Practitioner Family; Visit Provider Physician Assistant
DX: R10.11 Right upper quadrant pain (principal); K21.9 Gastro-esophageal reflux disease without esophagitis; G89.29 Other chronic pain; R11.2 Nausea with vomiting, unspecified; E11.65 Type 2 diabetes mellitus with hyperglycemia
CPT/HCPCS: 36415; 76700; 80053; 80061; 81003; 83036; 84443; 85025

== ENCOUNTER 2024-12-04 13:00 | Outpatient (AMB) | payer MEDICARE, MEDICAID, SELFPAY ==
--- NOTE | 2024-12-04 13:13 | A.OFFVIS_ITS ---
Vital Signs 12/04/24 13:17 Height 6 ft Weight 192 lb BMI 26.0 BP 114/82 Blood Pressure Location Rt brachial Position Sitting Pulse 80 Pulse Source Pulse Oximeter Pulse Oximetry (%) 97 Oxygen Delivery Method Room Air Intake Visit Reasons: jm pt stomach pain, says he has bulge Intake Note: Patient complex follow up for stomach pain, says he has bulge/Re chau was 09/16/2022 with abdomen US results. Patient cc: C.O. nausea and a mass in the upper abd which pt states he has had for a few years but has recently noticed an increase in size and is becoming more painful to palp. GERD OK with Pantoprazole. [employer] Required: No Accompanied by: Self / Same As Patient Allergies amoxicillin Allergy (Unknown, Verified 12/04/24 13:28) vomitting Medication List - Last Reconciled 12/04/24 by Sandra Yates CNP ascorbate calcium (vitamin C) 500 mg PO DAILY blood sugar diagnostic (FreeStyle Lite Strips) Test blood sugar 3 times per day cholecalciferol (vitamin D3) 25 mcg PO DAILY dulaglutide (Trulicity) 1.5 mg (0.5 mL) subcut QWEEK lancets (FreeStyle Lancets) Test blood sugar 3 times per day multivitamin (Daily Multi-Vitamin tablet) 1 tab PO DAILY pantoprazole 40 mg PO DAILY HPI HPI jm pt stomach pain, says he has bulge: Details: Patient is a 49-year-old male with PMH of depression, insomnia, vitamin-D deficiency, diabetes, hypertension, hyperlipidemia and GERD. Last visit with NIDA Morgan 09/16/2022 for constipation and acid reflux. Patient is accompanied by [facility]. Sarah reports his acid reflux has worsened since his last visit in August 2022. He has increased symptoms when he misses doses of pantoprazole due to inconsistent use while traveling. The pantoprazole otherwise controls his reflux. He avoids certain foods like spicy items due to reflux and intolerance. For the last year, he has noticed a bulge in his abdomen, which has become more consistent over the past three months. The bulge causes discomfort and is associated with vomiting, which occurs up to three times daily, not necessarily related to meals. He describes the bulge as a protrusion of the stomach muscles, visible when sitting up. He also reports chronic constipation, with bowel movements every three to four days, and varied stool consistency. His appetite is reduced, that he attributes to trulicity. Patient denies: fever/chills, appetite changes, dysphasia, unintentional wt loss or melena/hematochezia. Social hx: - Diet: Eats eggs, chicken, some canned fruits; avoids high-fiber foods. - Alcohol/Tobacco/Drug Use: - Alcohol: None - Recreational drugs: Marijuana daily (3g) - Tobacco: Quit December 2016 - Occupation: Former construction tech, currently disabled. - family hx as below -denies personal hx of CA -denies significant cardiopulmonary history -tolerated anesthesia in the past without difficulty [facility] Medical History (Updated 12/04/24 @ 14:14 by Sandra Yates CNP) Abdominal pain Nausea and vomiting Chronic right upper quadrant pain Vitamin D deficiency Type 2 diabetes mellitus with hyperglycemia Essential hypertension Hyperlipidemia LDL goal <100 Surgical History H/O cervical discectomy Hx of endoscopy Hx of spinal fusion Hx of cholecystectomy History of surgical removal of ganglion cyst Family History Father Lung cancer Diabetes CVD (cardiovascular disease) Substance use disorder Mother Diabetes Hypertension Mental health disorder Brother Substance use disorder Paternal Uncle Substance use disorder Mental health disorder Maternal Uncle Substance use disorder Social History Household Members: Spouse Housing: House Alcohol intake: never Patient Tobacco Use Status: Former Tobacco user e-Cigarette/Vaping Use: Never Used Second Hand Smoke Exposure: No Substance Use Type: Marijuana Current occupational status: unemployed and disabled Current occupation: rt hand Cognitive needs: No Hearing needs: No Vision needs: No Review of Systems Const Reports as per HPI ENT Reports as per HPI Card Reports as per HPI Resp Reports as per HPI GI Reports as per HPI Reports as per HPI Physical Exam Const General: healthy appearing, no acute distress and well developed Nutritional Appearance: well nourished Orientation/consciousness: patient oriented x3 HEENT Head: Yes normal to inspection, Yes normocephalic and Yes atraumatic Face and sinus: Yes normal facial exam Eyes General: appearance normal, both eyes and all related structures Neck Neck: Yes normal visual inspection Resp Effort & Inspection: normal respiratory effort, able to speak in complete sentences, no tracheal deviation and symmetric chest movement Auscultation: clear to auscultation bilaterally Cardio Jugular venous distension: no JVD Rate: regular rate Rhythm: regular rhythm Heart sounds: S1 normal heart sound present, S2 normal heart sound present, no gallops and no murmurs GI Other: Visible midline bulge with sit-up, consistent with diastasis recti, no palpable hernia Inspection: Yes normal to inspection and No distended Palpation (GI): Soft to palpation, not firm, nontender and No hepatosplenomegaly present Auscultation: normal bowel sounds Skin Other: multiple hypopigmented macules to chest and upper ab region Neuro General: patient oriented x3 Gait exam (Neuro): Normal gait present Psych Appearance: grossly normal Mental Status: mental status grossly normal Speech and movement: Normal speech and movement present Affect: normal affect Attitude: cooperative Thought process: Normal thought process present Thought content: Normal thought content present Insight: Good insight present (Psych) Judgement: Good judgement present (Psych) Results Reviewed Results Reviewed: Date of Service: 10/12/22 Procedure(s): US abdomen complete Accession Number(s): [id number] cc: Re Calvillo PA-C~ EXAMINATION: US ABDOMEN COMPLETE CLINICAL INFORMATION: Right upper quadrant pain. COMPARISON: Ultrasound abdomen complete 12/25/2020. CT abdomen and pelvis 03/24/2018. TECHNIQUE: Real-time imaging of the abdominal viscera. FINDINGS: PANCREAS: Visualized portions of the pancreas are unremarkable. The pancreatic tail is obscured by bowel gas. ABDOMINAL AORTA: Aortic atherosclerotic calcifications of the distal aorta. INFERIOR VENA CAVA: Visualized portions are normal. LIVER: The liver is normal in size. The liver contour is normal. Diffuse increased echogenicity of the liver parenchyma. No focal hepatic lesion. There is no intrahepatic biliary duct dilatation seen. GALLBLADDER: Surgically absent. COMMON BILE DUCT: Normal in caliber measuring 0.4 cm in diameter. RIGHT KIDNEY: Normal. No hydronephrosis. No renal calculi or focal parenchymal lesions. The kidney measures 11.4 cm in maximum dimension. LEFT KIDNEY: Normal. No hydronephrosis. No renal calculi or focal parenchymal lesions. The kidney measures 11.2 cm in maximum dimension. SPLEEN: Normal. The spleen measures 12.5 cm in maximum dimension. FREE FLUID: None. US/US abdomen complete IMPRESSION: * Diffuse increased echogenicity of the liver parenchyma likely reflects hepatic steatosis. Date of Service: 12/31/20 Procedure(s): OH gastric emptying study Accession Number(s): [id number] cc: Re Calvillo PA-C~ EXAMINATION: OH RADIONUCLIDE SOLID FOOD GASTRIC EMPTYING 4-HOUR STUDY CLINICAL INFORMATION: Diabetes mellitus with hyperglycemia. Nausea and vomiting. COMPARISON: None TECHNIQUE: A standard meal consisting of 4 oz of Egg Beaters brand tagged with 1.0 microcuries Tc-99m Sulfur Colloid, 8 oz water and half slice of toast with jelly was administered orally to the patient. Images were obtained using a dual head gamma camera in the anterior and posterior projections over of the stomach immediately post ingestion and at hourly intervals up to 4 hours post ingestion. The anterior and posterior counts at each time interval were averaged using the geometric mean and expressed as percentage of the immediate post ingestion counts. FINDINGS: There is good visualization of activity in the stomach immediately post ingestion. As the study progresses, there is good clearance of activity from the stomach and visualization of progressively increasing small bowel activity. By the end of the study, there is almost no retention noted in the stomach. Retention in the stomach at each time interval was: 1 hour 25% (normal 37%-90%) 2 hours 20% (normal 30%-60%) 3 hours 1% 4 hours 0% (normal 0%-10%) OH/OH gastric emptying study IMPRESSION: Normal 4-hour solid food gastric emptying study. Operative Note Date of Service: 12/01/20 Narrative: Procedure Description: EGD FLEXIBLE TRANSORAL UPPER GASTROINTESTINAL ENDOSCOPY UPPER ENDOSCOPY Procedure: The patient was placed in the left lateral decubitis position and pre-procedure medications were administered and a bite block was placed. The endoscope was inserted into the mouth and advanced under direct vision to the third part of duodenum. A careful inspection was made as the upper endoscope was withdrawn including a retroflexed examination of the proximal stomach; Findings and interventions are described below. Findings: Larynx:normal Esophagus: GE junction at 42 cm, diaphragm hiatus at 42 cm, no varices or esophagitis. Stomach: Retained food in upper stomach. Patchy gastric erythema. Biopsies were obtained. Grade 2 flap valve on retroflexed examination of the cardia. Fundus obscured by retained food. Duodenum: Normal bulb and descending duodenum, bx taken Intervention: Biopsies as noted above Impression/Findings: possible gastroparesis maybe from DM or medication related gastritis PLAN: small volume low fat, low fiber meals await GES as ordered by Saad Calvillo and GENEVIEVE interiano with PPI PATHOLOGY Collected: 12/01/20 Location: [facility] Received: 12/01/20 ADDENDUM REPORT Addendum Addendum #1 By immunohistochemistry, gastrin stain is reactive in the pits in both tissue fragments in part B, supporting antral origin. This finding argues against atrophy. -- Diagnosis A. Duodenum, biopsy: Duodenal mucosa within normal limits. B. Stomach, biopsy: - Gastric mucosa with severe chronic, focally active, inflammation and focal intestinal metaplasia; no dysplasia seen. - Rare forms suspicious for H pylori identified. COMMENT: The stomach biopsies lack gastric specialized glands. Immunostudies to confirm antral origin (or atrophy) are pending; results will be addended. Clinical History Pre-Op Dx: n/v Post-Op Dx: Gastroparesis, gastritis Assessment & Plan Assessment & Plan (1) Acid reflux: Comment: 12/01/2020 EGD-Gastroparesis, gastritis Code(s): K21.9 - Gastro-esophageal reflux disease without esophagitis Category: Medical Qualifiers: Esophagitis presence: without esophagitis Qualified Code(s): K21.9 - Gastro-esophageal reflux disease without esophagitis Plan: Chronic, ongoing symptoms. Noted inconsistent pantoprazole use due to travel; reinforced need for daily dosing. Additional Tests: - Repeat upper endoscopy to assess for mucosal changes given persistent symptoms since last EGD (2020). Medications: - Continue pantoprazole 40mg PO QD. Education on GERD prevention : -Advised against heavy meals; encouraged small, frequent meals instead of large ones. - Instructed to remain upright for 2?3 hours after eating. - Advised to avoid late-night meals, spicy foods, caffeine, alcohol, known dietary triggers, and tight-fitting clothing. - Emphasis placed on gradual implementation of lifestyle changes to improve adherence and symptom control. (2) Screening for colon cancer: Code(s): Z12.11 - Encounter for screening for malignant neoplasm of colon Category: Medical Plan: Due for index screening colonoscopy We will review prep at next visit (3) Abdominal pain: Code(s): R10.9 - Unspecified abdominal pain Category: Medical Qualifiers: Abdominal location: epigastric Qualified Code(s): R10.13 - Epigastric pain Plan: Reviewed previous imaging; normal gastric emptying and Prior RUQ ultrasound (September 2022) showed normal liver size/color, possible mild fatty liver, no hernia identified at that time. Additional Tests: - Abdominal CT with IV and oral contrast to rule out hernia or other pathology (due to new persistent bulge, vomiting). - Pt to complete fasting labs ordered by PCP prior to imaging. Additional screening lab ordered. - Colonoscopy for standard CRC screening and to evaluate for colonic pathology. Medications: - Initiate Miralax (PEG 3350) 17g PO QD for constipation. Lifestyle Modifications: - Increase dietary fiber as tolerated (provided handout). - Gradually increase water intake (goal: half body weight in ounces). - Encourage regular physical activity (walking). -Good diabetes control Follow-Up: - If no hernia on imaging, consider PT for core strengthening. - Refer to general surgery if hernia identified. Plan follow up 8 weeks to review results/reasses or sooner as needed Time: I spent a total of 40 minutes on the date of encounter which includes: Preparing to see the patient (reviewed previous documentation, test results and medical history) Performing a medically appropriate exam and/or evaluation Ordering medications, tests, and procedures Documenting clinical information in the health record Orders: Orders CT abdomen pelvis w IV con Today R10.9 - Unspecified abdominal pain Lipase Today R10.13 - Epigastric pain Medications: New bisacodyl Take four tablets once for 1 day per colonoscopy instructions 5 mg PO ONCE 1 day 4 tabs 0RF polyethylene glycol 3350 (Miralax) Take 17G (one cap full) daily with 8oz of water 17 grams PO DAILY 30 days 510 grams 2RF constipation polyethylene glycol 3350 (Miralax) per colonoscopy prep instructions 238 grams PO ONCE 238 grams 0RF Coding Level of Care Code Established Pt Est Pt Level 4 (56347) Patient Type Established Diagnoses Gastroesophageal reflux disease without esophagitis K21.9 Esophagitis presence: without esophagitis Screening for colon cancer Z12.11 Epigastric pain R10.13 Abdominal location: epigastric
[2024-12-04 13:17] VITALS: BP 114/82; PULSE 80; O2SAT 97; BMI 26.0
== END 2024-12-04 13:51 | disposition home or self-care (01) ==
LOC: HO.HGI 13:11
PROVIDERS: PCP Nurse Practitioner Family; Visit Provider Nurse Practitioner Family
DX: K21.9 Gastro-esophageal reflux disease without esophagitis (principal); Z12.11 Encounter for screening for malignant neoplasm of colon; R10.13 Epigastric pain
CPT/HCPCS: 99024

== ENCOUNTER → 2024-12-04 13:00 | Outpatient (BNVA) | payer MEDICARE, MEDICAID, SELFPAY | PROVIDERS: PCP Nurse Practitioner Family; Visit Provider Nurse Practitioner Family | DX: Z12.11 Encounter for screening for malignant neoplasm of colon (principal); K21.9 Gastro-esophageal reflux disease without esophagitis; R10.13 Epigastric pain | CPT/HCPCS: 99212 ==

== ENCOUNTER 2025-03-21 12:54 | Outpatient (REF) | payer MEDICARE, MEDICAID, SELFPAY ==
--- NOTE | ~2025-03-21 | CT_ITS ---
EXAMINATION: CT ABDOMEN AND PELVIS WITH CONTRAST CLINICAL INFORMATION: R10.9 - Unspecified abdominal pain COMPARISON: 03/24/2018 TECHNIQUE: Multidetector volumetric images were obtained from the superior aspect of the liver through the pubic symphysis following administration 85 mL of Omnipaque 350 intravenous contrast. Sagittal and coronal reformatted images were obtained on the technologist's workstation. Oral contrast: No This CT examination was performed using dose optimization techniques as appropriate, variously including the following: *Automated exposure control *Adjustment of mA and/or kV according to patient size (this includes techniques or standardized protocols for targeted exams where dose is matched to indication/reason for exam; i.e. extremities or head) *Use of iterative reconstruction technique FINDINGS: LUNG BASES: The visualized lung bases are unremarkable. LIVER, GALLBLADDER, AND BILIARY TREE: Mild low attenuation is noted throughout the liver. Gallbladder surgically absent. There are clips in the gallbladder fossa. There is no biliary duct dilation. PANCREAS: Unremarkable. SPLEEN: Unremarkable. ADRENAL GLANDS: Unremarkable. KIDNEYS AND URETERS: The kidneys are normal in size, shape, and attenuation. No hydronephrosis, hydroureter, or calculi seen. No perinephric stranding. BLADDER: Unremarkable. GASTROINTESTINAL TRACT: The small and large bowel are unremarkable. The appendix is unremarkable. ABDOMINAL WALL: Very small umbilical hernia is present. LYMPH NODES: Normal. VASCULAR: Vascular calcification are present. PELVIC VISCERA: Unremarkable. OSSEOUS STRUCTURES: Posterior pedicle screws and rods fuse L4-5. There is interbody spacer. There are mild degenerative changes in the hips. There are mild degenerative changes in the SI joints. CT/CT abdomen pelvis w IV con IMPRESSION: Mild changes consistent with hepatic steatosis. L4-5 surgical fusion. Fleischner guidelines were followed. Electronically signed by: Gustavo Cuellar MD 03/21/2025 04:08 PM EDT
[2025-03-21] MEDS: iohexoL 350 MG/ML 100 ML INFUS..BTL IV (15:52)
[2025-03-22 14:28] LABS: Creatinine POC 0.9 mg/dL (0.5-1.4); GFR POC > 60
== END 2025-03-21 12:55 | disposition home or self-care (01) ==
LOC: HO.CT 12:54
PROVIDERS: PCP Nurse Practitioner Family; Visit Provider Nurse Practitioner Family
DX: R10.9 Unspecified abdominal pain (principal)
CPT/HCPCS: 74177; 82565; Q9967

== ENCOUNTER → 2025-03-21 12:56 | Outpatient (BNV) | payer MEDICARE, MEDICAID, SELFPAY | PROVIDERS: PCP Nurse Practitioner Family; Visit Provider Radiology Diagnostic Radiology | DX: R10.9 Unspecified abdominal pain (principal); M43.26 Fusion of spine, lumbar region | CPT/HCPCS: 74177 ==

== ENCOUNTER 2025-03-26 10:33 | Outpatient (REF) | payer MEDICARE, MEDICAID, SELFPAY ==
[2025-03-26 12:12] LABS: Lipase 69 U/L (8-78)
== END 2025-03-26 10:34 | disposition home or self-care (01) ==
LOC: HO.LAB 10:33
PROVIDERS: PCP Nurse Practitioner Family; Visit Provider Nurse Practitioner Family
DX: K21.9 Gastro-esophageal reflux disease without esophagitis (principal); K42.9 Umbilical hernia without obstruction or gangrene; K76.0 Fatty (change of) liver, not elsewhere classified; Z79.899 Other long term (current) drug therapy
CPT/HCPCS: 36415; 83690; 99212

== ENCOUNTER 2025-03-26 14:55 | Outpatient (AMB) | payer MEDICARE, MEDICAID, SELFPAY ==
--- NOTE | 2025-03-26 15:02 | A.OFFVIS_ITS ---
Vital Signs 03/26/25 15:03 Height 6 ft Blood Pressure Location Lt brachial Position Sitting Pulse Oximetry (%) 98 Oxygen Delivery Method Room Air Intake Visit Reasons: f/u abd pain Intake Note: Patient follow up for abdominal pain and CT scan/Lab results Patient cc: acid reflux on and off, denies any other GI issues. 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 Accompanied by: Family/Other Allergies amoxicillin Allergy (Unknown, Verified 03/26/25 15:02) vomitting Medication List - Last Reconciled 03/26/25 by Sandra Yates CNP ascorbate calcium (vitamin C) 500 mg PO DAILY bisacodyl 5 mg PO ONCE 1 day blood sugar diagnostic (FreeStyle Lite Strips) Test blood sugar 3 times per day cholecalciferol (vitamin D3) 25 mcg PO DAILY lancets (FreeStyle Lancets) Test blood sugar 3 times per day metformin 500 mg PO DAILY multivitamin (Daily Multi-Vitamin tablet) 1 tab PO DAILY pantoprazole 40 mg PO DAILY polyethylene glycol 3350 (Miralax) 17 grams PO DAILY 30 days polyethylene glycol 3350 (Miralax) 238 grams PO ONCE HPI HPI f/u abd pain: Details: Patient is a 49-year-old male with PMH of depression, insomnia, vitamin-D deficiency, diabetes, hypertension, hyperlipidemia and GERD. F/u on recent abdominal CT for abd pain and reported upper abd bulge. Pt reports resolution of prior abd pain and absence of new bulge sx for approx 1 month. Nausea/vomiting have ceased since d/c of trulicity. Pantoprazole now taken regularly, though timing varies with meals. Heartburn episodes significantly improved?now approx once/week versus daily previously. BMs described as more regular, occurring daily. Pt has resumed metformin for DM management after d/c of trulicity, obtaining Rx through prior supply and pharmacy refills. No reported compliance barriers, though pt not currently under active PCP mgmt. No hospitalizations, UC visits, or GI flares reported. No new or worsening GI sx. [facility] Medical History (Updated 03/26/25 @ 16:53 by Sandra Yates CNP) Umbilical hernia Fatty liver Abdominal pain Nausea and vomiting Chronic right upper quadrant pain Vitamin D deficiency Type 2 diabetes mellitus with hyperglycemia Essential hypertension Hyperlipidemia LDL goal <100 Surgical History H/O cervical discectomy Hx of endoscopy Hx of spinal fusion Hx of cholecystectomy History of surgical removal of ganglion cyst Family History Father Lung cancer Diabetes CVD (cardiovascular disease) Substance use disorder Mother Diabetes Hypertension Mental health disorder Brother Substance use disorder Paternal Uncle Substance use disorder Mental health disorder Maternal Uncle Substance use disorder Social History Household Members: Spouse Housing: House Alcohol intake: never Patient Tobacco Use Status: Former Tobacco user e-Cigarette/Vaping Use: Never Used Second Hand Smoke Exposure: No Substance Use Type: Marijuana Current occupational status: unemployed and disabled Current occupation: rt hand Cognitive needs: No Hearing needs: No Vision needs: No Review of Systems Const Reports as per HPI ENT Reports as per HPI Card Reports as per HPI Resp Reports as per HPI GI Reports as per HPI Reports as per HPI Physical Exam Vital Signs: Last Vital Signs Pulse Ox 98 03/26/25 15:03 Oxygen Delivery Method Room Air 03/26/25 15:03 Const General: healthy appearing, no acute distress and well developed Nutritional Appearance: average body habitus Orientation/consciousness: patient oriented x3 HEENT Head: Yes normal to inspection, Yes normocephalic and Yes atraumatic Face and sinus: Yes normal facial exam Eyes General: appearance normal, both eyes and all related structures Neck Neck: Yes normal visual inspection Resp Effort & Inspection: normal respiratory effort, able to speak in complete sentences, no tracheal deviation and symmetric chest movement Cardio Jugular venous distension: no JVD GI Inspection: Yes normal to inspection and No distended Palpation (GI): Soft to palpation, not firm, nontender and No hepatosplenomegaly present Auscultation: normal bowel sounds Neuro General: patient oriented x3 Gait exam (Neuro): Normal gait present Psych Appearance: grossly normal Mental Status: mental status grossly normal Speech and movement: Normal speech and movement present Affect: normal affect Attitude: cooperative Thought process: Normal thought process present Thought content: Normal thought content present Insight: Good insight present (Psych) Judgement: Good judgement present (Psych) Results Reviewed Results Reviewed: Date of Service: 03/21/25 Procedure(s): CT abdomen pelvis w IV con Accession Number(s): [id number] cc: Tristen KongP-BC; Sandra Yates DYNAMOMETER TE[employer] ENGINE~ Report Number: [id number]: Total DLP = 441.00 mGy-cm Reason for Exam: R10.9 - Unspecified abdominal pain EXAMINATION: CT ABDOMEN AND PELVIS WITH CONTRAST CLINICAL INFORMATION: R10.9 - Unspecified abdominal pain COMPARISON: 03/24/2018 TECHNIQUE: Multidetector volumetric images were obtained from the superior aspect of the liver through the pubic symphysis following administration 85 mL of Omnipaque 350 intravenous contrast. Sagittal and coronal reformatted images were obtained on the technologist's workstation. Oral contrast: No This CT examination was performed using dose optimization techniques as appropriate, variously including the following: *Automated exposure control *Adjustment of mA and/or kV according to patient size (this includes techniques or standardized protocols for targeted exams where dose is matched to indication/reason for exam; i.e. extremities or head) *Use of iterative reconstruction technique FINDINGS: LUNG BASES: The visualized lung bases are unremarkable. LIVER, GALLBLADDER, AND BILIARY TREE: Mild low attenuation is noted throughout the liver. Gallbladder surgically absent. There are clips in the gallbladder fossa. There is no biliary duct dilation. PANCREAS: Unremarkable. SPLEEN: Unremarkable. ADRENAL GLANDS: Unremarkable. KIDNEYS AND URETERS: The kidneys are normal in size, shape, and attenuation. No hydronephrosis, hydroureter, or calculi seen. No perinephric stranding. BLADDER: Unremarkable. GASTROINTESTINAL TRACT: The small and large bowel are unremarkable. The appendix is unremarkable. ABDOMINAL WALL: Very small umbilical hernia is present. LYMPH NODES: Normal. VASCULAR: Vascular calcification are present. PELVIC VISCERA: Unremarkable. OSSEOUS STRUCTURES: Posterior pedicle screws and rods fuse L4-5. There is interbody spacer. There are mild degenerative changes in the hips. There are mild degenerative changes in the SI joints. CT/CT abdomen pelvis w IV con IMPRESSION: Mild changes consistent with hepatic steatosis. L4-5 surgical fusion. Fleischner guidelines were followed. Assessment & Plan Assessment & Plan (1) Abdominal pain: Code(s): R10.9 - Unspecified abdominal pain Category: Medical Qualifiers: Abdominal location: epigastric Qualified Code(s): R10.13 - Epigastric pain Plan: GI sx resolved after d/c of Trulicity. Additional Testing: None. Medications: None for trulicity; continue off GLP-1 RA class unless reassessed. Lifestyle: None specific. Referrals: N/A. Follow-Up Plan: Monitor for future recurrence of GI sx if re-challenged with incretin-based therap (2) Acid reflux: Comment: 12/01/2020 EGD-Gastroparesis, gastritis Code(s): K21.9 - Gastro-esophageal reflux disease without esophagitis Category: Medical Qualifiers: Esophagitis presence: without esophagitis Qualified Code(s): K21.9 - Gastro-esophageal reflux disease without esophagitis Plan: Improved frequency with consistent pantoprazole. Additional Testing: EGD pending to r/o mucosal dz. Medications: Continue pantoprazole 40mg PO QD; reinforce empty stomach admin > 30min pre-prandial. Lifestyle: Reinforce small meals VS large; avoid triggers (myrtle late meals, caffeine, carbonation); wt loss as able. Follow-Up Plan: Reassess post-procedure or sooner if increased sx; track heartburn frequency. (3) Fatty liver: Code(s): K76.0 - Fatty (change of) liver, not elsewhere classified Category: Medical Plan: Stable, no LFT elevation; dx by CT. Risk factors include T2DM, abdominal obesity. Additional Testing: Repeat LFTs/A1C/lipids per PCP lab orders. Medications: None specific for NAFLD. Lifestyle: Weight reduction, optimize glycemic control, maintain normolipidemia, regular physical activity. Provided dietary counseling focused on balanced, low- sugar diet and increased physical activity. Referrals: PCP f/u for DM and metabolic labs. Follow-Up Plan: Monitor LFTs annually or sooner if abnl; coordinate with PCP. (4) Umbilical hernia: Code(s): K42.9 - Umbilical hernia without obstruction or gangrene Category: Medical Qualifiers: Obstruction and gangrene presence: without obstruction or gangrene Qualified Code(s): K42.9 - Umbilical hernia without obstruction or gangrene Plan: Very small,per imaging and recent hx. Asymptomatic, no clinical evidence for intervention. Additional Testing: None indicated unless sx develop. Medications: None. Lifestyle: Avoid heavy lifting/straining; monitor for changes. Referrals: Surgical eval if any increase in size or sx. Follow-Up Plan: Sx-based only. Plan Pending EGD/colonoscopy scheduling; pt to notify office if no contact from cabin worker. Follow-up after endoscopy or sooner as needed Time: I spent a total of 20 minutes on the date of encounter which includes: Preparing to see the patient (reviewed previous documentation, test results and medical history) Performing a medically appropriate exam and/or evaluation Ordering medications, tests, and procedures Documenting clinical information in the health record Coding Level of Care Code Established Pt Est Pt Level 3 (68073) Patient Type Established Diagnoses Epigastric pain R10.13 Abdominal location: epigastric Gastroesophageal reflux disease without esophagitis K21.9 Esophagitis presence: without esophagitis Fatty liver K76.0 Umbilical hernia without obstruction and without gangrene K42.9 Obstruction and gangrene presence: without obstruction or gangrene
[2025-03-26 15:03] VITALS: O2SAT 98
== END 2025-03-26 15:30 | disposition home or self-care (01) ==
LOC: HO.HGI 14:55
PROVIDERS: PCP Nurse Practitioner Family; Visit Provider Nurse Practitioner Family
DX: R10.13 Epigastric pain (principal); K21.9 Gastro-esophageal reflux disease without esophagitis; K76.0 Fatty (change of) liver, not elsewhere classified; K42.9 Umbilical hernia without obstruction or gangrene
CPT/HCPCS: 99213

== ENCOUNTER 2025-03-29 08:44 | Outpatient (REF) | payer MEDICARE, MEDICAID, SELFPAY ==
--- NOTE | ~2025-03-29 | XR_ITS ---
EXAMINATION: XR KNEE 4 OR MORE VIEWS LEFT HISTORY: M25.562 - Pain in left knee COMPARISON: Comparison is made with the prior examination dated 10/29/2021. FINDINGS: Four views of the left knee are submitted. Osseous mineralization is normal. There is no fracture or dislocation. The joint spaces are preserved. The soft tissues are unremarkable. There is no joint effusion. XR/XR knee LT 4V IMPRESSION: Unremarkable examination of the left knee. Electronically signed by: Mick Hicks MD 03/29/2025 10:02 AM EDT
[2025-03-29 13:03] LABS: MANUAL DIFF FLAG NO
[2025-03-29 13:08] LABS: Hematocrit 44.0 % (42.0-52.0); Hemoglobin 15.0 g/dl (14.0-18.0); Imm Gran Abs Auto 0.02 X10*3/uL (0.00-0.03); Imm Gran Pct Auto 0.3 % (0.0-0.4); Lymphocytes Absolute Auto 1.5 X10*3/uL (1.2-4.9); Mean Corpuscular HGB Conc 34.1 g/dl (31.0-36.0); Mean Corpuscular Hemoglobin 31.0 pg (27.0-33.0); Mean Corpuscular Volume 90.9 fL (80.0-98.0); NRBC Abs Auto 0.000 X10*3/uL (0.0-0.012); NRBC Pct Auto 0.0 /100WBC (0.0-0.2); Platelet Count 268 X10*3/uL (160-400); Red Blood Count 4.84 X10*6/uL (4.60-5.80); White Blood Count 5.9 X10*3/uL (4.8-10.8)
[2025-03-29 13:10] LABS: Appearance Urine Clear; Glucose Urine UA >=1000 mg/dL (Negative); PH 5.5 (5.0-9.0); Specific Gravity - Urine >= 1.030 (1.005-1.025); UMIC TRIGGER UACC YES
[2025-03-29 13:44] LABS: Microalbum/Creatinine Ratio Ur 23.0 ug/mg cr (<30)
[2025-03-29 13:50] LABS: Anion Gap 11 (12-20); Blood Urea Nitrogen 14 mg/dL (9-16); Calcium 9.7 mg/dL (8.4-10.2); Carbon Dioxide 28 mmol/L (22-29); Chloride 100 mmol/L (96-108); Estimated Glomerular Filt Rate > 60; Potassium 4.5 mmol/L (3.3-5.1); Sodium 134 mmol/L (135-145)
[2025-03-29 13:51] LABS: Alanine Aminotransferase 24 U/L (0-40); Albumin Level 4.5 g/dL (3.5-5.0); Alkaline Phosphatase 82 U/L (39-117); Aspartate Amino Transferase 21 U/L (5-37); Cholesterol 254 mg/dL (<200); HDL Cholesterol 34 mg/dL (>40); Total Protein 7.4 g/dL (6.5-8.0); Triglycerides 740 mg/dL (<150)
== END 2025-03-29 08:45 | disposition home or self-care (01) ==
LOC: HO.HMGCX 08:44
PROVIDERS: Absent Provider Physician Assistant Medical; PCP Nurse Practitioner Family; Visit Provider Nurse Practitioner Family
DX: M25.562 Pain in left knee (principal); E11.65 Type 2 diabetes mellitus with hyperglycemia
CPT/HCPCS: 36415; 73564; 80053; 80061; 81001; 81003; 82043; 82570; 83036; 84443; 85025; 99212

== ENCOUNTER 2025-03-29 08:44 | Outpatient (AMB) | payer MEDICARE, MEDICAID, SELFPAY ==
[2025-03-29 08:50] VITALS: BP 120/72; PULSE 96; RESP 15; TEMP 36.8; O2SAT 98; BMI 26.0
--- NOTE | 2025-03-29 08:50 | AM.OFFWIN_ITS ---
Intake Vital Signs 03/29/25 08:50 Height 6 ft Weight 192 lb BMI 26.0 BP 120/72 Blood Pressure Location Rt brachial Position Sitting Respiration 15 Pulse 96 Pulse Source Pulse Oximeter Temp 98.2 F Temp Source Oral Pulse Oximetry (%) 98 Oxygen Delivery Method Room Air Intake Visit Reasons: EP left knee sweling/pain Intake Note: Pt is here today c/o Lt knee pain swelling and pain no recent injury noted x2mo. Patient Tobacco Use Status: Former Tobacco user Allergies amoxicillin Allergy (Unknown, Verified 03/26/25 15:02) vomitting HPI HPI Comments History of Present Illness Details This is a 49-year-old male who presented to the walk-in clinic complaining of left knee pain and swelling x 2-3 months. Patient states he injured his left knee about 2 years ago when he fell 12-15 feet at the [place]. Patient has had left knee pain since then but it has been mild and has not affected his mobility. Patient has had worsening left knee pain as well as swelling over the past 2-3 months without any new injury. He states he just woke up one day with worsening pain. Patient has had limited mobility of the knee with buckling/stiffness of the knee and increased pain with weight-bearing. He used to walk 4 miles/day; however, he is unable to walk 100 yards without pain now. He has also been unable to twist/pivot on his left knee as he feels as though the knee joint locks up. He states that the knee does occasionally swell but denies any swelling of his calf. He states the knee does occasionally become red but it is not persistently erythematous or warm. He denies any fevers or chills. [facility] Medical History (Updated 03/26/25 @ 16:53 by Sandra Yates CNP) Umbilical hernia Fatty liver Abdominal pain Nausea and vomiting Chronic right upper quadrant pain Vitamin D deficiency Type 2 diabetes mellitus with hyperglycemia Essential hypertension Hyperlipidemia LDL goal <100 Surgical History H/O cervical discectomy Hx of endoscopy Hx of spinal fusion Hx of cholecystectomy History of surgical removal of ganglion cyst Family History Father Lung cancer Diabetes CVD (cardiovascular disease) Substance use disorder Mother Diabetes Hypertension Mental health disorder Brother Substance use disorder Paternal Uncle Substance use disorder Mental health disorder Maternal Uncle Substance use disorder Social History Household Members: Spouse Housing: House Alcohol intake: never Patient Tobacco Use Status: Former Tobacco user e-Cigarette/Vaping Use: Never Used Second Hand Smoke Exposure: No Substance Use Type: Marijuana Current occupational status: unemployed and disabled Current occupation: rt hand Cognitive needs: No Hearing needs: No Vision needs: No Review of Systems Const All systems reviewed & are unremarkable except as noted in HPI and below Reports no additional complaints Eyes Reports no additional complaints ENT Reports no additional complaints Card Reports no additional complaints Resp Reports no additional complaints GI Reports no additional complaints Reports no additional complaints Musc Reports no additional complaints Skin/Breast Reports system reviewed and no additional complaints, except as documented Neuro Reports no additional complaints Psych Reports no additional complaints Endo Reports no additional complaints Abel/Lymph Reports no additional complaints Aller/Immun Reports no additional complaints Physical Exam Exam Exam: Vital signs reviewed. Constitutional: Non-toxic appearing. No acute distress. Well-developed and well-nourished. HEENT: Normocephalic and atraumatic. Skin: Warm and dry. No rashes or lesions noted. Cardio: Regular rate. No lower extremity edema. Pulmonary: No respiratory distress. No accessory muscle usage. Musculoskeletal: There is mild swelling to the medial aspect of the left knee. There is tenderness to palpation to the medial joint line of the left knee. Patient has positive valgus stress test with medial knee pain. Negative anterior drawer testing. There is no erythema or warmth to the left knee. Neuro: Alert and oriented x4. Cranial nerves 2-12 grossly intact. No focal deficits appreciated. Psych: Normal mood and affect. Vital Signs: Last Vital Signs Temp 98.2 F 03/29/25 08:50 Pulse 96 03/29/25 08:50 Resp 15 03/29/25 08:50 BP 120/72 03/29/25 08:50 Pulse Ox 98 03/29/25 08:50 Oxygen Delivery Method Room Air 03/29/25 08:50 BMI result Body Mass Index 26.0 Assessment & Plan Assessment & Plan (1) Left medial knee pain: Code(s): M25.562 - Pain in left knee Plan 49-year-old male who presented to the walk-in clinic complaining of [id number] left knee pain and swelling x 2-3 months with limited mobility and limited weight-bearing ability following an injury that occurred 2 years ago. On physical examination, there is mild swelling and tenderness to palpation of the medial joint line of the left knee as well as positive valgus stress testing. Differential diagnosis includes ligamentous versus meniscal injury versus less likely fracture or dislocation. There is no concern for septic arthritis given absence of warmth or erythema of the left knee joint as well as absence of fevers. An x-ray of the left knee was ordered to rule out fracture/dislocation as well as to evaluate for signs of arthritis or joint space narrowing. Patient was given a referral to orthopedics for further evaluation and management. I recommended symptomatic management such as rest/activity modification, ice to the area, and acetaminophen/ibuprofen for pain management. Patient was advised to proceed directly to the emergency room if he were to develop any signs/symptoms of septic arthritis as discussed above and he was advised to follow-up with orthopedics for further evaluation/management. Patient verbalized understanding and he is in agreement with the plan. Orders: Orders XR knee LT 3V Today M25.562 - Pain in left knee Referrals Orthopedics Referral M25.562 - Pain in left knee Coding Level of Care Code Est Pt Level 3 (61990) Diagnoses Left medial knee pain M25.562
== END 2025-03-29 09:41 | disposition home or self-care (01) ==
PROVIDERS: PCP Nurse Practitioner Family; Visit Provider Physician Assistant Medical
DX: M25.562 Pain in left knee (principal)

== ENCOUNTER → 2025-03-29 09:48 | Outpatient (BNV) | payer MEDICARE, MEDICAID, SELFPAY | PROVIDERS: Absent Provider Physician Assistant Medical; PCP Nurse Practitioner Family; Visit Provider Radiology Diagnostic Radiology | DX: M25.562 Pain in left knee (principal) | CPT/HCPCS: 73564 ==